=== PATIENT | female | born 1935 | race Caucasian/White ===

== ENCOUNTER → 2016-08-01 | Outpatient (CLI) | payer MEDICARE ==
[2016-08-01 09:50] LABS: ALT 31 U/L (9-52); AST 36 U/L (14-36); Alkaline Phosphatase 77 U/L (38-126); Anion Gap 10 mmol/L; Blood Urea Nitrogen 15 mg/dL (7-17); Calcium 9.5 mg/dL (8.4-10.2); Carbon Dioxide 30 mmol/L (22-30); Chloride 103 mmol/L (98-107); Cholesterol 237 mg/dL (<200); Glucose 90 mg/dL (74-99); HDL Cholesterol 109 mg/dL (40-60); Non-African American GFR(MDRD) >60 (>60 ml/min/1.73 sqM); Potassium 4.5 mmol/L (3.5-5.1); Sodium 143 mmol/L (137-145); Total Bilirubin 0.7 mg/dL (0.2-1.3); Total Protein 7.7 g/dL (6.3-8.2); Triglycerides 73 mg/dL (<150)
== END ==
LOC: LABWHC1 09:22
PROVIDERS: ATTEND Internal Medicine Endocrinology, Diabetes & Metabolism
DX: E11.65 Type 2 diabetes mellitus with hyperglycemia (principal)
CPT/HCPCS: 36415; 80053; 80061

== ENCOUNTER 2017-01-03 19:27 | Emergency (ER) | payer MEDICARE ==
[2017-01-03] MEDS ORDERED: SODIUM CHLORIDE 0.9% 500 ML IV STA (20:34)
[2017-01-03] MEDS ORDERED: RX INFO: IV CONTRAST WAS GIVEN 1 EACH MISC MISCELLANE PRN (20:34)
--- NOTE | 2017-01-03 20:36 | ED ---
Abdominal Pain HPI - General Chief Complaint: Abdominal Pain Stated Complaint: lower right abdominal pain Time Seen by Provider: 01/03/17 20:20 Source: patient, RN notes reviewed Mode of arrival: ambulatory Limitations: no limitations - History of Present Illness Initial Comments: This 81-year-old female presents emergency Department chief complaint of right lower quadrant abdominal pain. Patient states his pain started a few hours ago around dinnertime. Patient states she's felt nauseated no vomiting no diarrhea. States she's had some constipation. Patient denies any dysuria hematuria. She's had no prior abdominal surgeries and no history kidney stones. Patient denies chest pain, shortness breath, fever, chills. Patient states the pain has seemed to let up somewhat still right lower abdomen and painful with palpation. - Related Data Home Medications Medication Instructions Recorded Confirmed Donepezil [Aricept] 10 mg PO HS 12/05/14 01/03/17 Pravastatin Sodium [Pravachol] 20 mg PO DAILY 12/05/14 01/03/17 Insulin Lispro [humaLOG Kwikpen] 6 units SQ AC-TID 01/03/17 01/03/17 Synthroid (Unknown Dose) 1 tab PO DAILY 01/03/17 01/03/17 Previous Rx's Medication Instructions Recorded Insulin Glargine,Hum.rec.anlog 15 unit SQ DAILY #2 pen 12/07/14 [Lantus Solostar] Allergies Allergy/AdvReac Type Severity Reaction Status Date / Time No Known Allergies Allergy Verified 01/03/17 20:40 Review of Systems ROS Statement: Those systems with pertinent positive or pertinent negative responses have been documented in the HPI. ROS Other: All systems not noted in ROS Statement are negative. Past Medical History Past Medical History: Diabetes Mellitus, Hyperlipidemia, Memory Impairment, Osteoarthritis (OA), Syncope, Thyroid Disorder Additional Past Medical History / Comment(s): DIVERTICULOSIS, INSULIN PUMP,HAS DIFFIUCLTY STAYING ASLEEP. HAS HEARING AIDES BUT WON'T WEAR THEM, HAS UPPER PARTIAL PLATE. History of Any Multi-Drug Resistant Organisms: None Reported Past Surgical History: Adenoidectomy, Tonsillectomy Additional Past Surgical History / Comment(s): COLONOSCOPY, CATARACTS [place] Past Anesthesia/Blood Transfusion Reactions: No Reported Reaction Past Psychological History: No Psychological Hx Reported Smoking Status: Former smoker Past Alcohol Use History: Rare Past Drug Use History: None Reported - Past Family History Father History Unknown: Yes Additional Family Medical History / Comment(s): WAS ALCOHILIC IN AND OUT OF PTS LIFE NOT MUCH KNOWN ABOUT HIM Mother Family Medical History: Diabetes Mellitus General Exam Limitations: no limitations General appearance: alert, in no apparent distress Head exam: Present: atraumatic, normocephalic, normal inspection Eye exam: Present: normal appearance, PERRL, EOMI. Absent: scleral icterus, conjunctival injection, periorbital swelling Respiratory exam: Present: normal lung sounds bilaterally. Absent: respiratory distress, wheezes, rales, rhonchi, stridor Cardiovascular Exam: Present: regular rate, normal rhythm, normal heart sounds. Absent: systolic murmur, diastolic murmur, rubs, gallop, clicks GI/Abdominal exam: Present: soft, tenderness (Moderate right lower quadrant tenderness), normal bowel sounds. Absent: distended, guarding, rebound, rigid Back exam: Absent: CVA tenderness (R), CVA tenderness (L) Neurological exam: Present: alert, oriented X3, CN II-XII intact Skin exam: Present: warm, dry, intact, normal color. Absent: rash Course Vital Signs 01/03/17 01/03/17 01/03/17 19:58 20:07 21:47 Temperature 98.6 F 97.8 F Pulse Rate 60 60 56 L Respiratory 20 18 18 Rate Blood Pressure 158/71 169/76 166/78 O2 Sat by Pulse 99 96 98 Oximetry Medical Decision Making - Medical Decision Making 81-year-old female presented for abdominal pain. Patient's pain has resolved. Patient's CT does show some tortuous vessels most likely related to fibroids. Patient abdomen is reexamined and is nontender. There is no true evidence of appendicitis. Patient's case discussed with Dr. Orozco return parameters were discussed. - Lab Data Result diagrams: 01/03/17 20:40 01/03/17 20:40 Lab Results 01/03/17 01/03/17 01/03/17 Range/Units 20:40 20:40 22:36 WBC 4.5 (3.8-10.6) k/uL RBC 3.67 L (3.80-5.40) m/uL Hgb 13.5 (11.4-16.0) gm/dL Hct 39.1 (34.0-46.0) % MCV 106.5 H (80.0-100.0) fL MCH 36.8 H (25.0-35.0) pg MCHC 34.5 (31.0-37.0) g/dL RDW 11.7 (11.5-15.5) % Plt Count 246 (150-450) k/uL Neutrophils % 58 % Lymphocytes % 30 % Monocytes % 8 % Eosinophils % 2 % Basophils % 1 % Neutrophils # 2.6 (1.3-7.7) k/uL Lymphocytes # 1.3 (1.0-4.8) k/uL Monocytes # 0.3 (0-1.0) k/uL Eosinophils # 0.1 (0-0.7) k/uL Basophils # 0.0 (0-0.2) k/uL Macrocytosis Slight Sodium 140 (137-145) mmol/L Potassium 4.3 (3.5-5.1) mmol/L Chloride 107 (98-107) mmol/L Carbon Dioxide 25 (22-30) mmol/L Anion Gap 8 mmol/L BUN 14 (7-17) mg/dL Creatinine 0.60 (0.52-1.04) mg/dL Est GFR (MDRD) Af Amer >60 (>60 ml/min/1.73 sqM) Est GFR (MDRD) Non-Af >60 (>60 ml/min/1.73 sqM) Glucose 184 H (74-99) mg/dL Calcium 9.3 (8.4-10.2) mg/dL Total Bilirubin 0.6 (0.2-1.3) mg/dL AST 28 (14-36) U/L ALT 31 (9-52) U/L Alkaline Phosphatase 67 (38-126) U/L Total Protein 6.8 (6.3-8.2) g/dL Albumin 4.1 (3.5-5.0) g/dL Amylase <30 L (30-110) U/L Lipase 73 (23-300) U/L Urine Color Yellow Urine Appearance Clear (Clear) Urine pH 6.0 (5.0-8.0) Ur Specific Hawkins 1.047 H (1.001-1.035) Urine Protein Negative (Negative) Urine Glucose (UA) 4+ H (Negative) Urine Ketones Trace H (Negative) Urine Blood Negative (Negative) Urine Nitrite Negative (Negative) Urine Bilirubin Negative (Negative) Urine Urobilinogen <2.0 (<2.0) mg/dL Ur Leukocyte Esterase Negative (Negative) Disposition Clinical Impression: Abdominal pain Disposition: HOME SELF-CARE Condition: Stable Instructions: Abdominal Pain (ED) Additional Instructions: Please return to the Emergency Department if symptoms worsen or any other concerns. Referrals: Mat Duque MD [Primary Care Provider] - 1-2 days Time of Disposition: 23:04
[2017-01-03 20:59] LABS: Basophils % (A) 1 %; CH 35.6; CHCM 33.5; Eosinophils # (A) 0.1 k/uL (0-0.7); Eosinophils % (A) 2 %; HCT 39.1 % (34.0-46.0); HDW 2.16; HGB 13.5 gm/dL (11.4-16.0); Luc # (Auto) 0.11; Luc % (Auto) 3; Lymphocytes # (A) 1.3 k/uL (1.0-4.8); Lymphocytes % (A) 30 %; MCH 36.8 pg (25.0-35.0); MCHC 34.5 g/dL (31.0-37.0); MCV 106.5 fL (80.0-100.0); Macrocytosis Slight; Monocytes # (A) 0.3 k/uL (0-1.0); Monocytes % (A) 8 %; Neutrophils # (A) 2.6 k/uL (1.3-7.7); Neutrophils % (A) 58 %; RBC 3.67 m/uL (3.80-5.40); RDW 11.7 % (11.5-15.5); WBC 4.5 k/uL (3.8-10.6); WBC (Perox) 4.51
[2017-01-03 21:10] LABS: ALT 31 U/L (9-52); AST 28 U/L (14-36); Alkaline Phosphatase 67 U/L (38-126); Amylase <30 U/L (30-110); Anion Gap 8 mmol/L; Blood Urea Nitrogen 14 mg/dL (7-17); Calcium 9.3 mg/dL (8.4-10.2); Carbon Dioxide 25 mmol/L (22-30); Chloride 107 mmol/L (98-107); Glucose 184 mg/dL (74-99); Non-African American GFR(MDRD) >60 (>60 ml/min/1.73 sqM); Potassium 4.3 mmol/L (3.5-5.1); Sodium 140 mmol/L (137-145); Total Bilirubin 0.6 mg/dL (0.2-1.3); Total Protein 6.8 g/dL (6.3-8.2)
--- NOTE | 2017-01-03 21:48 | CT ---
EXAMINATION TYPE: CT abdomen pelvis w con DATE OF EXAM: 01/03/2017 COMPARISON: NONE HISTORY: Right lower quadrant pain. CT DLP: 362.3 mGycm Automated exposure control for dose reduction was used. TECHNIQUE: Helical acquisition of images was performed from the lung bases through the pelvis. CONTRAST: Performed without Oral Contrast and with IV Contrast, patient injected with 100 mL of Omnipaque 300. FINDINGS: LUNG BASES: Mild dependent changes are noted at both lung bases. 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 LIVER/GB: No significant abnormality is appreciated. PANCREAS: No significant abnormality is seen. SPLEEN: No significant abnormality is seen. ADRENALS: No significant abnormality is seen. KIDNEYS: No significant abnormality is seen. FREE AIR: No free air is visualized. RETROPERITONEAL ADENOPATHY: None visualized REPRODUCTIVE ORGANS: The uterus is present. URINARY BLADDER: No significant abnormality is seen. PELVIC ADENOPATHY: None visualized. OSSEOUS STRUCTURES: No significant abnormality is seen. BOWEL: No significant abnormality is seen. A normal or abnormal appendix is not identified. OTHER: There is a diffuse amount of enhancing vessels within the pelvis which could be related to the uterine artery. There is also enlarged inguinal lymph node noted on the right measuring 1.6 x 1.5 cm . IMPRESSION: MULTIPLE SERPIGINOUS VESSELS ARE IDENTIFIED SURROUNDING THE PATIENT'S UTERUS FELT TO BE TORTUOUS UTER INE ARTERIES. THERE IS A PROMINENT INGUINAL LYMPH NODE OF UNKNOWN SIGNIFICANCE. NO ACUTE ABNORMALITY IS IDENTIFIED.
[2017-01-03 22:47] LABS: Appearance,Urine Clear (Clear); Bilirubin,Urine Negative (Negative); Glucose,Urine (UA) 4+ (Negative); Ketones,Urine Trace (Negative); Leukocyte Esterase,Urine Negative (Negative); Nitrite,Urine Negative (Negative); Protein,Urine Negative (Negative); UA Billing (MACRO vs. MICRO) CHEM; Urobilinogen,Urine <2.0 mg/dL (<2.0)
[2017-01-03 22:52] LABS: Specific Gravity,Urine 1.047 (1.001-1.035)
[2017-01-03 23:12] VITALS: BP 142/58; PULSE 68; RESP 16; TEMP 97.6
== END 2017-01-03 23:11 | disposition home or self-care (01) ==
LOC: EC 19:27
DX: R10.31 Right lower quadrant pain (principal); R11.0 Nausea; E11.9 Type 2 diabetes mellitus without complications; E78.5 Hyperlipidemia, unspecified; E07.9 Disorder of thyroid, unspecified; Z87.891 Personal history of nicotine dependence; Z79.4 Long term (current) use of insulin; Z79.899 Other long term (current) drug therapy
CPT/HCPCS: 99284; 96360; 96361; 36415; 80053; 82150; 83690; 85025; 81003; 74177; Q9967

== ENCOUNTER 2017-01-11 13:02 | Inpatient (IN) | payer MEDICARE ==
[2017-01-11] MEDS ORDERED: SODIUM CHLORIDE 0.9% 1,000 ML IV STA (13:05)
--- NOTE | 2017-01-11 13:12 | ED ---
General Adult HPI - General Stated complaint: UNRESPONSIVE Time Seen by Provider: 01/11/17 13:03 Source: RN notes reviewed, old records reviewed - History of Present Illness Initial comments: This is an 81-year-old female ER for evaluation regarding altered mental status. Patient's not clinically at home. Patient has a caregiver caregiver called EMS secondary to unresponsiveness. Patient has history of exact same symptoms before these are usually related to low blood sugar episodes. Per EMS patient's blood sugar was 26 and has improved with IV dextrose - Related Data Home Medications Medication Instructions Recorded Confirmed Donepezil [Aricept] 10 mg PO HS 12/05/14 01/11/17 Pravastatin Sodium [Pravachol] 20 mg PO DAILY 12/05/14 01/11/17 Insulin Lispro [humaLOG Kwikpen] 6 units SQ ACHS 01/03/17 01/11/17 Chlorothiazide [Diuril] 250 mg PO DAILY 01/11/17 01/11/17 Glucagon Emergency Kit 1 mg IM ONCE PRN 01/11/17 01/11/17 Insulin Glargine,Hum.rec.anlog 16 unit SQ HS 01/11/17 01/11/17 [Lantus Solostar] Levothyroxine Sodium [Synthroid] 112 mcg PO DAILY 01/11/17 01/11/17 Memantine HCl [Namenda Xr] 14 mg PO DAILY 01/11/17 01/11/17 Oxybutynin Chloride [Ditropan] 5 mg PO DAILY 01/11/17 01/11/17 Triamterene-Hctz 37.5-25Mg 1 cap PO DAILY 01/11/17 01/11/17 [Dyazide 37.5-25 Capsule] Allergies Allergy/AdvReac Type Severity Reaction Status Date / Time No Known Allergies Allergy Verified 01/11/17 13:32 Review of Systems ROS Statement: Those systems with pertinent positive or pertinent negative responses have been documented in the HPI. ROS Other: All systems not noted in ROS Statement are negative. Past Medical History Past Medical History: Diabetes Mellitus, Hyperlipidemia, Memory Impairment, Osteoarthritis (OA), Syncope, Thyroid Disorder Additional Past Medical History / Comment(s): DIVERTICULOSIS, INSULIN PUMP,HAS DIFFIUCLTY STAYING ASLEEP. HAS HEARING AIDES BUT WON'T WEAR THEM, HAS UPPER PARTIAL PLATE. History of Any Multi-Drug Resistant Organisms: None Reported Past Surgical History: Adenoidectomy, Tonsillectomy Additional Past Surgical History / Comment(s): COLONOSCOPY, CATARACTS [place] Past Anesthesia/Blood Transfusion Reactions: No Reported Reaction Past Psychological History: No Psychological Hx Reported Smoking Status: Former smoker Past Alcohol Use History: Rare Past Drug Use History: None Reported - Past Family History Father History Unknown: Yes Additional Family Medical History / Comment(s): WAS ALCOHILIC IN AND OUT OF PTS LIFE NOT MUCH KNOWN ABOUT HIM Mother Family Medical History: Diabetes Mellitus General Exam Limitations: altered mental status General appearance: alert, in no apparent distress Head exam: Present: atraumatic, normocephalic, normal inspection Eye exam: Present: normal appearance, PERRL, EOMI. Absent: scleral icterus, conjunctival injection, periorbital swelling ENT exam: Present: normal exam, mucous membranes moist Neck exam: Present: normal inspection. Absent: tenderness, meningismus, lymphadenopathy Respiratory exam: Present: normal lung sounds bilaterally. Absent: respiratory distress, wheezes, rales, rhonchi, stridor Cardiovascular Exam: Present: regular rate, normal rhythm, normal heart sounds. Absent: systolic murmur, diastolic murmur, rubs, gallop, clicks GI/Abdominal exam: Present: soft, normal bowel sounds. Absent: distended, tenderness, guarding, rebound, rigid Extremities exam: Present: normal inspection, full ROM, normal capillary refill. Absent: tenderness, pedal edema, joint swelling, calf tenderness Back exam: Present: normal inspection Neurological exam: Present: alert, oriented X3, CN II-XII intact Psychiatric exam: Present: normal affect, normal mood Skin exam: Present: warm, dry, intact, normal color. Absent: rash Course Vital Signs 01/11/17 01/11/17 01/11/17 13:08 13:34 14:20 Temperature 95.5 F L 95.8 F L Pulse Rate 79 67 Respiratory 17 17 Rate Blood Pressure 192/89 165/67 O2 Sat by Pulse 93 L 98 Oximetry - Reevaluation(s) Reevaluation #1: 01/11/17 15:40 Patient does have recheck insulin as she has been diminished and her mental state again with recurrent low blood sugar EKG Findings - EKG Comments: EKG Findings:: EKG shows sinus rhythm rate of 66, [place] 136, QRS 70, QTc 461 Medical Decision Making - Medical Decision Making 81 female the ER for evaluation of altered mental status low blood sugar. Patient is recurrent admitted for IV insulin to increase diet. - Lab Data Result diagrams: 01/11/17 13:20 01/11/17 13:20 Lab Results 01/11/17 01/11/17 01/11/17 Range/Units 13:19 13:20 13:20 WBC 6.4 (3.8-10.6) k/uL RBC 3.96 (3.80-5.40) m/uL Hgb 14.5 (11.4-16.0) gm/dL Hct 44.3 (34.0-46.0) % MCV 111.7 H D (80.0-100.0) fL MCH 36.6 H (25.0-35.0) pg MCHC 32.8 (31.0-37.0) g/dL RDW 12.5 (11.5-15.5) % Plt Count 211 (150-450) k/uL Neutrophils % 78 % Lymphocytes % 16 % Monocytes % 5 % Eosinophils % 1 % Basophils % 0 % Neutrophils # 5.0 (1.3-7.7) k/uL Lymphocytes # 1.0 (1.0-4.8) k/uL Monocytes # 0.3 (0-1.0) k/uL Eosinophils # 0.1 (0-0.7) k/uL Basophils # 0.0 (0-0.2) k/uL Manual Slide Review Performed Macrocytosis Marked PT (9.0-12.0) sec INR (<1.2) APTT (22.0-30.0) sec Sodium (137-145) mmol/L Potassium (3.5-5.1) mmol/L Chloride (98-107) mmol/L Carbon Dioxide (22-30) mmol/L Anion Gap mmol/L BUN (7-17) mg/dL Creatinine (0.52-1.04) mg/dL Est GFR (MDRD) Af Amer (>60 ml/min/1.73 sqM) Est GFR (MDRD) Non-Af (>60 ml/min/1.73 sqM) Glucose (74-99) mg/dL POC Glucose (mg/dL) 93 (75-99) mg/dL POC Glu Ui Developer With [employer] ID Susanne Dorsey Plasma Lactic Acid Hank (0.7-2.0) mmol/L Calcium (8.4-10.2) mg/dL Phosphorus (2.5-4.5) mg/dL Magnesium (1.6-2.3) mg/dL Total Bilirubin (0.2-1.3) mg/dL AST (14-36) U/L ALT (9-52) U/L Alkaline Phosphatase (38-126) U/L Total Creatine Kinase 302 H (30-135) U/L CK-MB (CK-2) 4.3 H* (0.0-2.4) ng/mL CK-MB (CK-2) Rel Index 1.4 Troponin I <0.012 (0.000-0.034) ng/mL Total Protein (6.3-8.2) g/dL Albumin (3.5-5.0) g/dL TSH (0.465-4.680) mIU/L 01/11/17 01/11/17 01/11/17 Range/Units 13:20 13:20 13:20 WBC (3.8-10.6) k/uL RBC (3.80-5.40) m/uL Hgb (11.4-16.0) gm/dL Hct (34.0-46.0) % MCV (80.0-100.0) fL MCH (25.0-35.0) pg MCHC (31.0-37.0) g/dL RDW (11.5-15.5) % Plt Count (150-450) k/uL Neutrophils % % Lymphocytes % % Monocytes % % Eosinophils % % Basophils % % Neutrophils # (1.3-7.7) k/uL Lymphocytes # (1.0-4.8) k/uL Monocytes # (0-1.0) k/uL Eosinophils # (0-0.7) k/uL Basophils # (0-0.2) k/uL Manual Slide Review Macrocytosis PT 10.8 (9.0-12.0) sec INR 1.1 (<1.2) APTT 22.2 (22.0-30.0) sec Sodium 141 (137-145) mmol/L Potassium 4.1 (3.5-5.1) mmol/L Chloride 107 (98-107) mmol/L Carbon Dioxide 25 (22-30) mmol/L Anion Gap 9 mmol/L BUN 15 (7-17) mg/dL Creatinine 0.56 (0.52-1.04) mg/dL Est GFR (MDRD) Af Amer >60 (>60 ml/min/1.73 sqM) Est GFR (MDRD) Non-Af >60 (>60 ml/min/1.73 sqM) Glucose 90 (74-99) mg/dL POC Glucose (mg/dL) (75-99) mg/dL POC Glu Ui Developer With [employer] ID Plasma Lactic Acid Hank 2.1 H* (0.7-2.0) mmol/L Calcium 8.9 (8.4-10.2) mg/dL Phosphorus 3.3 (2.5-4.5) mg/dL Magnesium 1.8 (1.6-2.3) mg/dL Total Bilirubin 0.7 (0.2-1.3) mg/dL AST 46 H (14-36) U/L ALT 33 (9-52) U/L Alkaline Phosphatase 54 (38-126) U/L Total Creatine Kinase (30-135) U/L CK-MB (CK-2) (0.0-2.4) ng/mL CK-MB (CK-2) Rel Index Troponin I (0.000-0.034) ng/mL Total Protein 7.0 (6.3-8.2) g/dL Albumin 4.1 (3.5-5.0) g/dL TSH 19.900 H (0.465-4.680) mIU/L 01/11/17 01/11/17 Range/Units 14:42 15:28 WBC (3.8-10.6) k/uL RBC (3.80-5.40) m/uL Hgb (11.4-16.0) gm/dL Hct (34.0-46.0) % MCV (80.0-100.0) fL MCH (25.0-35.0) pg MCHC (31.0-37.0) g/dL RDW (11.5-15.5) % Plt Count (150-450) k/uL Neutrophils % % Lymphocytes % % Monocytes % % Eosinophils % % Basophils % % Neutrophils # (1.3-7.7) k/uL Lymphocytes # (1.0-4.8) k/uL Monocytes # (0-1.0) k/uL Eosinophils # (0-0.7) k/uL Basophils # (0-0.2) k/uL Manual Slide Review Macrocytosis PT (9.0-12.0) sec INR (<1.2) APTT (22.0-30.0) sec Sodium (137-145) mmol/L Potassium (3.5-5.1) mmol/L Chloride (98-107) mmol/L Carbon Dioxide (22-30) mmol/L Anion Gap mmol/L BUN (7-17) mg/dL Creatinine (0.52-1.04) mg/dL Est GFR (MDRD) Af Amer (>60 ml/min/1.73 sqM) Est GFR (MDRD) Non-Af (>60 ml/min/1.73 sqM) Glucose (74-99) mg/dL POC Glucose (mg/dL) 65 L 45 L (75-99) mg/dL POC Glu Ui Developer With [employer] Susanne Quinn Ellie Plasma Lactic Acid Hank (0.7-2.0) mmol/L Calcium (8.4-10.2) mg/dL Phosphorus (2.5-4.5) mg/dL Magnesium (1.6-2.3) mg/dL Total Bilirubin (0.2-1.3) mg/dL AST (14-36) U/L ALT (9-52) U/L Alkaline Phosphatase (38-126) U/L Total Creatine Kinase (30-135) U/L CK-MB (CK-2) (0.0-2.4) ng/mL CK-MB (CK-2) Rel Index Troponin I (0.000-0.034) ng/mL Total Protein (6.3-8.2) g/dL Albumin (3.5-5.0) g/dL TSH (0.465-4.680) mIU/L Disposition Clinical Impression: Altered mental status, Hypoglycemia Disposition: HOME SELF-CARE Condition: Good Instructions: Altered Mental Status (ED) Referrals: Mat Duque MD [Primary Care Provider] - 1-2 days
[2017-01-11 13:21] LABS: Glucose,Whole Blood 93 mg/dL (75-99)
[2017-01-11 13:42] LABS: Basophils % (A) 0 %; CHCM 32.4; Eosinophils # (A) 0.1 k/uL (0-0.7); Eosinophils % (A) 1 %; HCT 44.3 % (34.0-46.0); HGB 14.5 gm/dL (11.4-16.0); Luc # (Auto) 0.04; Luc % (Auto) 1; Lymphocytes % (A) 16 %; MCH 36.6 pg (25.0-35.0); MCHC 32.8 g/dL (31.0-37.0); Macrocytosis Marked; Monocytes # (A) 0.3 k/uL (0-1.0); Monocytes % (A) 5 %; Neutrophils % (A) 78 %; RBC 3.96 m/uL (3.80-5.40); RDW 12.5 % (11.5-15.5); WBC 6.4 k/uL (3.8-10.6); WBC (Perox) 7.09
[2017-01-11 13:45] LABS: INR 1.1 (<1.2); Prothrombin Time 10.8 sec (9.0-12.0)
[2017-01-11 13:50] LABS: MCV 111.7 fL (80.0-100.0)
[2017-01-11 13:54] LABS: Partial Thromboplastin Time 22.2 sec (22.0-30.0)
[2017-01-11 13:56] LABS: ALT 33 U/L (9-52); AST 46 U/L (14-36); Alkaline Phosphatase 54 U/L (38-126); Anion Gap 9 mmol/L; Blood Urea Nitrogen 15 mg/dL (7-17); Calcium 8.9 mg/dL (8.4-10.2); Carbon Dioxide 25 mmol/L (22-30); Chloride 107 mmol/L (98-107); Glucose 90 mg/dL (74-99); Magnesium 1.8 mg/dL (1.6-2.3); Non-African American GFR(MDRD) >60 (>60 ml/min/1.73 sqM); Phosphorus 3.3 mg/dL (2.5-4.5); Sodium 141 mmol/L (137-145); Total Bilirubin 0.7 mg/dL (0.2-1.3)
[2017-01-11 14:10] LABS: Creatine Kinase 302 U/L (30-135)
[2017-01-11 14:18] LABS: Manual Review Performed
[2017-01-11 14:23] LABS: Troponin I <0.012 ng/mL (0.000-0.034)
[2017-01-11 14:36] LABS: Creatine Kinase MB 4.3 ng/mL (0.0-2.4); Potassium 4.1 mmol/L (3.5-5.1)
[2017-01-11 14:44] LABS: Glucose,Whole Blood 65 mg/dL (75-99)
[2017-01-11] MEDS ORDERED: DEXTROSE 50%-WATER 50 ML SYRINGE IVP STA (14:52)
[2017-01-11] MEDS ORDERED: DEXTROSE 5%-0.45% NACL 1,000 ML IV ONE ×2 (14:52→14:57)
[2017-01-11 15:30] LABS: Glucose,Whole Blood 45 mg/dL (75-99)
--- NOTE | 2017-01-11 15:52 | ED ---
Medical Decision Making - Lab Data Result diagrams: 01/11/17 13:20 01/11/17 13:20 Lab Results 01/11/17 01/11/17 01/11/17 Range/Units 13:19 13:20 13:20 WBC 6.4 (3.8-10.6) k/uL RBC 3.96 (3.80-5.40) m/uL Hgb 14.5 (11.4-16.0) gm/dL Hct 44.3 (34.0-46.0) % MCV 111.7 H D (80.0-100.0) fL MCH 36.6 H (25.0-35.0) pg MCHC 32.8 (31.0-37.0) g/dL RDW 12.5 (11.5-15.5) % Plt Count 211 (150-450) k/uL Neutrophils % 78 % Lymphocytes % 16 % Monocytes % 5 % Eosinophils % 1 % Basophils % 0 % Neutrophils # 5.0 (1.3-7.7) k/uL Lymphocytes # 1.0 (1.0-4.8) k/uL Monocytes # 0.3 (0-1.0) k/uL Eosinophils # 0.1 (0-0.7) k/uL Basophils # 0.0 (0-0.2) k/uL Manual Slide Review Performed Macrocytosis Marked PT (9.0-12.0) sec INR (<1.2) APTT (22.0-30.0) sec Sodium (137-145) mmol/L Potassium (3.5-5.1) mmol/L Chloride (98-107) mmol/L Carbon Dioxide (22-30) mmol/L Anion Gap mmol/L BUN (7-17) mg/dL Creatinine (0.52-1.04) mg/dL Est GFR (MDRD) Af Amer (>60 ml/min/1.73 sqM) Est GFR (MDRD) Non-Af (>60 ml/min/1.73 sqM) Glucose (74-99) mg/dL POC Glucose (mg/dL) 93 (75-99) mg/dL POC Glu [employer] Manager ID Dorsey, Susanne Plasma Lactic Acid Hank (0.7-2.0) mmol/L Calcium (8.4-10.2) mg/dL Phosphorus (2.5-4.5) mg/dL Magnesium (1.6-2.3) mg/dL Total Bilirubin (0.2-1.3) mg/dL AST (14-36) U/L ALT (9-52) U/L Alkaline Phosphatase (38-126) U/L Total Creatine Kinase 302 H (30-135) U/L CK-MB (CK-2) 4.3 H* (0.0-2.4) ng/mL CK-MB (CK-2) Rel Index 1.4 Troponin I <0.012 (0.000-0.034) ng/mL Total Protein (6.3-8.2) g/dL Albumin (3.5-5.0) g/dL TSH (0.465-4.680) mIU/L 01/11/17 01/11/17 01/11/17 Range/Units 13:20 13:20 13:20 WBC (3.8-10.6) k/uL RBC (3.80-5.40) m/uL Hgb (11.4-16.0) gm/dL Hct (34.0-46.0) % MCV (80.0-100.0) fL MCH (25.0-35.0) pg MCHC (31.0-37.0) g/dL RDW (11.5-15.5) % Plt Count (150-450) k/uL Neutrophils % % Lymphocytes % % Monocytes % % Eosinophils % % Basophils % % Neutrophils # (1.3-7.7) k/uL Lymphocytes # (1.0-4.8) k/uL Monocytes # (0-1.0) k/uL Eosinophils # (0-0.7) k/uL Basophils # (0-0.2) k/uL Manual Slide Review Macrocytosis PT 10.8 (9.0-12.0) sec INR 1.1 (<1.2) APTT 22.2 (22.0-30.0) sec Sodium 141 (137-145) mmol/L Potassium 4.1 (3.5-5.1) mmol/L Chloride 107 (98-107) mmol/L Carbon Dioxide 25 (22-30) mmol/L Anion Gap 9 mmol/L BUN 15 (7-17) mg/dL Creatinine 0.56 (0.52-1.04) mg/dL Est GFR (MDRD) Af Amer >60 (>60 ml/min/1.73 sqM) Est GFR (MDRD) Non-Af >60 (>60 ml/min/1.73 sqM) Glucose 90 (74-99) mg/dL POC Glucose (mg/dL) (75-99) mg/dL POC Glu [employer] Manager ID Plasma Lactic Acid Hank 2.1 H* (0.7-2.0) mmol/L Calcium 8.9 (8.4-10.2) mg/dL Phosphorus 3.3 (2.5-4.5) mg/dL Magnesium 1.8 (1.6-2.3) mg/dL Total Bilirubin 0.7 (0.2-1.3) mg/dL AST 46 H (14-36) U/L ALT 33 (9-52) U/L Alkaline Phosphatase 54 (38-126) U/L Total Creatine Kinase (30-135) U/L CK-MB (CK-2) (0.0-2.4) ng/mL CK-MB (CK-2) Rel Index Troponin I (0.000-0.034) ng/mL Total Protein 7.0 (6.3-8.2) g/dL Albumin 4.1 (3.5-5.0) g/dL TSH 19.900 H (0.465-4.680) mIU/L 01/11/17 01/11/17 Range/Units 14:42 15:28 WBC (3.8-10.6) k/uL RBC (3.80-5.40) m/uL Hgb (11.4-16.0) gm/dL Hct (34.0-46.0) % MCV (80.0-100.0) fL MCH (25.0-35.0) pg MCHC (31.0-37.0) g/dL RDW (11.5-15.5) % Plt Count (150-450) k/uL Neutrophils % % Lymphocytes % % Monocytes % % Eosinophils % % Basophils % % Neutrophils # (1.3-7.7) k/uL Lymphocytes # (1.0-4.8) k/uL Monocytes # (0-1.0) k/uL Eosinophils # (0-0.7) k/uL Basophils # (0-0.2) k/uL Manual Slide Review Macrocytosis PT (9.0-12.0) sec INR (<1.2) APTT (22.0-30.0) sec Sodium (137-145) mmol/L Potassium (3.5-5.1) mmol/L Chloride (98-107) mmol/L Carbon Dioxide (22-30) mmol/L Anion Gap mmol/L BUN (7-17) mg/dL Creatinine (0.52-1.04) mg/dL Est GFR (MDRD) Af Amer (>60 ml/min/1.73 sqM) Est GFR (MDRD) Non-Af (>60 ml/min/1.73 sqM) Glucose (74-99) mg/dL POC Glucose (mg/dL) 65 L 45 L (75-99) mg/dL POC Glu [employer] Manager Susanne Quinn Ellie Plasma Lactic Acid Hank (0.7-2.0) mmol/L Calcium (8.4-10.2) mg/dL Phosphorus (2.5-4.5) mg/dL Magnesium (1.6-2.3) mg/dL Total Bilirubin (0.2-1.3) mg/dL AST (14-36) U/L ALT (9-52) U/L Alkaline Phosphatase (38-126) U/L Total Creatine Kinase (30-135) U/L CK-MB (CK-2) (0.0-2.4) ng/mL CK-MB (CK-2) Rel Index Troponin I (0.000-0.034) ng/mL Total Protein (6.3-8.2) g/dL Albumin (3.5-5.0) g/dL TSH (0.465-4.680) mIU/L Disposition Clinical Impression: Altered mental status, Hypoglycemia Disposition: ADMITTED IP TO THIS [facility] Condition: Good Instructions: Altered Mental Status (ED) Referrals: Mat Duque MD [Primary Care Provider] - 1-2 days
[2017-01-11 15:57] LABS: Glucose,Whole Blood 165 mg/dL (75-99)
[2017-01-11 16:19] LABS: Appearance,Urine Clear (Clear); Bilirubin,Urine Negative (Negative); Glucose,Urine (UA) 3+ (Negative); Ketones,Urine Negative (Negative); Leukocyte Esterase,Urine Negative (Negative); Nitrite,Urine Negative (Negative); Protein,Urine Negative (Negative); UA Billing (MACRO vs. MICRO) CHEM; Urobilinogen,Urine <2.0 mg/dL (<2.0)
[2017-01-11 16:36] LABS: Glucose,Whole Blood 133 mg/dL (75-99)
[2017-01-11 17:01] LABS: Glucose,Whole Blood 141 mg/dL (75-99)
[2017-01-11] MEDS ORDERED: GLUCAGON EMERGENCY 1 MG KIT IM PRN (18:19)
[2017-01-11] MEDS ORDERED: INSULIN LISPRO (humaLOG) 300 UNIT/3 ML VIAL SQ SCH (18:30)
[2017-01-11 20:23] LABS: Hemoglobin A1C 8.9 % (4.2-6.1)
--- NOTE | 2017-01-11 20:53 | P.HPIM ---
History of Present Illness H&P Date: 01/11/17 Chief Complaint: Altered mentation with severe hypoglycemia 81-year-old female pleasant patient of Dr. Duque with history of diabetes type 2 labile type of insulin-dependent could not remain on oral agent followed by Dr. Rojas endocrinology outpatient also has memory impairment, hyperlipidemia, osteomyelitis, hypothyroidism admitted to the emergency room secondary to unresponsiveness, EMS has evaluated the patient, this happened between breakfast and lunch, blood sugar was 26 at the time. Patient was supposed to take 6 units of insulin rapid acting breakfast lunch and dinner including a sliding scale at bedtime, patient complies with blood sugar testing, and cannot remember what her sugar numbers are and no sugar logs are brought in for further review. Patient apparently has been having decreased appetite, and only had toast and coffee for breakfast when the sugar decline occurred. Patient was given IV glucagon via EMS, and patient woke up in the ambulance. She denies any focal neurologic deficits including musculoskeletal trauma after the event. Patient denies any abdominal pain nausea vomiting diarrhea, no dysuria hematuria Review of Systems Constitutional: Reports as per HPI, Reports anorexia, Reports weight loss, Denies chills, Denies chronic headaches, Denies chronic pain, Denies daytime sleepiness, Denies fatigue, Denies fever, Denies lethargy, Denies malaise, Denies night sweats, Denies poor appetite, Denies sweats, Denies weakness, Denies weight gain Ears, nose, mouth and throat: Reports as per HPI, Denies ant. neck pain, Denies bleeding gums, Denies dental pain, Denies dysphagia, Denies epistaxis, Denies headache, Denies hoarseness, Denies mouth pain, Denies nasal congestion, Denies nasal discharge, Denies neck fullness/pressure, Denies neck lump, Denies nose pain, Denies odynophagia, Denies post-nasal drip, Denies sinus pain, Denies sinus pressure, Denies swelling in mouth, Denies swelling in throat, Denies sore throat, Denies vertigo, Denies voice changes Cardiovascular: Reports as per HPI, Denies chest pain, Denies claudication, Denies decreased exercise tolerance, Denies dyspnea on exertion, Denies edema, Denies high blood pressure, Denies irregular heart beat, Denies leg edema, Denies lightheadedness, Denies orthopnea, Denies palpitations, Denies paroxysmal nocturnal dyspnea, Denies phlebitis, Denies rapid heart beat, Denies shortness of breath, Denies syncope Respiratory: Reports as per HPI, Denies congestion, Denies cough, Denies cough with sputum, Denies dyspnea, Denies excessive sputum, Denies hemoptysis, Denies home oxygen, Denies pain, Denies pain on inspiration, Denies pleurisy, Denies respiratory infections, Denies sleep apnea, Denies snoring, Denies wheezing Gastrointestinal: Reports as per HPI Genitourinary: Reports as per HPI, Denies abnormal vaginal bleeding, Denies decreased libido, Denies difficulty conceiving, Denies difficulty voiding, Denies dysmenorrhea, Denies dyspareunia, Denies dysuria, Denies flank pain, Denies genital sores, Denies hematuria, Denies hot flashes, Denies incomplete emptying, Denies kidney stones, Denies menorrhagia, Denies mixed incontinence, Denies nocturia, Denies pelvic pain, Denies post void dribbling, Denies , Denies prolapse symptoms, Denies stress incontinence, Denies urge incontinence , Denies urgency, Denies urinary frequency, Denies vaginal discharge, Denies vaginal dryness, Denies vaginal itching, Denies vaginal odor Menstruation: Reports as per HPI, Reports postmenopausal Musculoskeletal: Reports as per HPI Integumentary: Reports as per HPI Neurological: Reports as per HPI, Reports weakness, Denies aphasia, Denies ataxia, Denies balance difficulties, Denies burning pain, Denies change in mentation, Denies change in smell/taste, Denies change in speech, Denies confusion, Denies convulsions, Denies double vision, Denies gait dysfunction, Denies head injury, Denies headaches, Denies hearing difficulties, Denies lack of coordination, Denies loss of vision, Denies memory loss, Denies migraines, Denies motor disturbance, Denies numbness, Denies paralysis, Denies paresthesias , Denies seizures, Denies sensory deficit, Denies spasticity, Denies syncope, Denies tic, Denies tingling, Denies transient paralysis, Denies tremors, Denies vertigo, Denies visual changes Psychiatric: Reports as per HPI, Denies anhedonia, Denies anxiety, Denies anxiety attacks, Denies change in appetite, Denies change in libido, Denies change in sleep habits, Denies confusion, Denies depression, Denies difficulty concentrating, Denies disorientation, Denies hallucinations, Denies hopelessness , Denies hypersomnia, Denies insomnia, Denies irritability, Denies memory loss, Denies mood swings, Denies paranoia, Denies sadness/tearfulness, Denies sleep disturbances, Denies suicidal ideation Endocrine: Reports as per HPI, Denies cold intolerance, Denies deepening of the voice, Denies excessive sweating, Denies excessive thirst, Denies fatigue, Denies flushing, Denies heat intolerance, Denies high blood sugars, Denies increase in ring/shoe/hat size, Denies low blood sugars, Denies nocturia, Denies palpitations, Denies polydipsia, Denies polyphagia, Denies polyuria, Denies proptosis, Denies recent glucocorticoid use, Denies thyroid mass, Denies weight change Hematologic/Lymphatic: Reports as per HPI, Denies easy bleeding, Denies easy bruising, Denies lymphadenopathy, Denies lymphedema, Denies thrombophilia Allergic/Immunologic: Reports as per HPI, Denies allergic rhinitis, Denies anaphylaxis, Denies angioedema, Denies gluten intolerance, Denies persistent infections, Denies seasonal allergies, Denies urticaria, Denies wheezing Past Medical History Past Medical History: Diabetes Mellitus, Hyperlipidemia, Memory Impairment, Osteoarthritis (OA), Syncope, Thyroid Disorder Additional Past Medical History / Comment(s): HAS HEARING AIDES BUT WON'T WEAR THEM, HAS UPPER PARTIAL PLATE. History of Any Multi-Drug Resistant Organisms: None Reported Past Surgical History: Adenoidectomy, Tonsillectomy, Tubal Ligation Additional Past Surgical History / Comment(s): COLONOSCOPY, BILATERAL CATARACTS REMOVED; LIVER BIOP Past Anesthesia/Blood Transfusion Reactions: No Reported Reaction Past Psychological History: No Psychological Hx Reported Smoking Status: Former smoker Past Alcohol Use History: Rare Past Drug Use History: None Reported - Past Family History Father History Unknown: Yes Additional Family Medical History / Comment(s): WAS ALCOHILIC IN AND OUT OF PTS LIFE NOT MUCH KNOWN ABOUT HIM Mother Family Medical History: Diabetes Mellitus Medications and Allergies Home Medications Medication Instructions Recorded Confirmed Type Donepezil [Aricept] 10 mg PO HS 12/05/14 01/11/17 History Pravastatin Sodium [Pravachol] 20 mg PO DAILY 12/05/14 01/11/17 History Insulin Lispro [humaLOG Kwikpen] 6 units SQ ACHS 01/03/17 01/11/17 History Chlorothiazide [Diuril] 250 mg PO DAILY 01/11/17 01/11/17 History Glucagon Emergency Kit 1 mg IM ONCE PRN 01/11/17 01/11/17 History Insulin Glargine,Hum.rec.anlog 16 unit SQ HS 01/11/17 01/11/17 History [Lantus Solostar] Levothyroxine Sodium [Synthroid] 112 mcg PO DAILY 01/11/17 01/11/17 History Memantine HCl [Namenda Xr] 14 mg PO DAILY 01/11/17 01/11/17 History Oxybutynin Chloride [Ditropan] 5 mg PO DAILY 01/11/17 01/11/17 History Triamterene-Hctz 37.5-25Mg 1 cap PO DAILY 01/11/17 01/11/17 History [Dyazide 37.5-25 Capsule] Allergies Allergy/AdvReac Type Severity Reaction Status Date / Time No Known Allergies Allergy Verified 01/11/17 13:32 Physical Exam Vitals: Vital Signs Temp Pulse Pulse Resp BP BP Pulse Ox 01/11/17 17:49 97.6 F 69 16 156/80 98 01/11/17 16:43 96.1 F L 54 L 17 173/87 98 01/11/17 15:51 77 17 178/86 98 01/11/17 14:20 95.8 F L 67 17 165/67 98 01/11/17 13:34 95.5 F L 01/11/17 13:08 79 17 192/89 93 L Intake and Output 01/11/17 01/11/17 01/11/17 06:59 14:59 22:59 Other: Weight 58.967 kg Patient Weight 01/12/17 06:59 Weight 58.967 kg - Constitutional General appearance: average body habitus, cooperative, no acute distress - EENT Eyes: anicteric sclerae, EOMI, PERRLA, dentition normal, normal appearance ENT: hearing grossly normal, NA/AT, normal oropharynx - Neck Neck: no lymphadenopathy, normal ROM, no other, no rigidity, no stridor, no thyromegaly - Respiratory Respiratory: bilateral: CTA, negative: diminished, dullness, rales, rhonchi - Cardiovascular Rhythm: regular Abnormal Heart Sounds: systolic murmur, no diastolic murmur, no rub, no S3 Gallop, no S4 Gallop, no click, no other - Gastrointestinal General gastrointestinal: normal bowel sounds, soft - Integumentary Integumentary: normal, normal turgor - Musculoskeletal Musculoskeletal: gait normal, no generalized weakness, strength equal bilaterally, no right sided weakness, no left sided weakness - Psychiatric Psychiatric: A&O x's 3, appropriate affect, intact judgment & insight Results CBC & Chem 7: 01/11/17 13:20 01/11/17 13:20 Labs: Abnormal Lab Results - Last 24 Hours (Table) 01/11/17 01/11/17 01/11/17 Range/Units 13:20 13:20 13:20 MCV 111.7 H D (80.0-100.0) fL MCH 36.6 H (25.0-35.0) pg POC Glucose (mg/dL) (75-99) mg/dL Plasma Lactic Acid Hank (0.7-2.0) mmol/L AST 46 H (14-36) U/L Total Creatine Kinase 302 H (30-135) U/L CK-MB (CK-2) 4.3 H* (0.0-2.4) ng/mL TSH 19.900 H (0.465-4.680) mIU/L Urine Glucose (UA) (Negative) 01/11/17 01/11/17 01/11/17 Range/Units 13:20 13:57 14:42 MCV (80.0-100.0) fL MCH (25.0-35.0) pg POC Glucose (mg/dL) 65 L (75-99) mg/dL Plasma Lactic Acid Hank 2.1 H* (0.7-2.0) mmol/L AST (14-36) U/L Total Creatine Kinase (30-135) U/L CK-MB (CK-2) (0.0-2.4) ng/mL TSH (0.465-4.680) mIU/L Urine Glucose (UA) 3+ H (Negative) 01/11/17 01/11/17 01/11/17 Range/Units 15:28 15:49 16:34 MCV (80.0-100.0) fL MCH (25.0-35.0) pg POC Glucose (mg/dL) 45 L 165 H 133 H (75-99) mg/dL Plasma Lactic Acid Hank (0.7-2.0) mmol/L AST (14-36) U/L Total Creatine Kinase (30-135) U/L CK-MB (CK-2) (0.0-2.4) ng/mL TSH (0.465-4.680) mIU/L Urine Glucose (UA) (Negative) 01/11/17 Range/Units 16:58 MCV (80.0-100.0) fL MCH (25.0-35.0) pg POC Glucose (mg/dL) 141 H (75-99) mg/dL Plasma Lactic Acid Hank (0.7-2.0) mmol/L AST (14-36) U/L Total Creatine Kinase (30-135) U/L CK-MB (CK-2) (0.0-2.4) ng/mL TSH (0.465-4.680) mIU/L Urine Glucose (UA) (Negative) Laboratory Results WBC 6.4 k/uL (3.8-10.6) 01/11/17 13:20 RBC 3.96 m/uL (3.80-5.40) 01/11/17 13:20 Hgb 14.5 gm/dL (11.4-16.0) 01/11/17 13:20 Hct 44.3 % (34.0-46.0) 01/11/17 13:20 MCV 111.7 fL (80.0-100.0) H D 01/11/17 13:20 MCH 36.6 pg (25.0-35.0) H 01/11/17 13:20 MCHC 32.8 g/dL (31.0-37.0) 01/11/17 13:20 RDW 12.5 % (11.5-15.5) 01/11/17 13:20 Plt Count 211 k/uL (150-450) 01/11/17 13:20 Neutrophils % 78 % 01/11/17 13:20 Lymphocytes % 16 % 01/11/17 13:20 Monocytes % 5 % 01/11/17 13:20 Eosinophils % 1 % 01/11/17 13:20 Basophils % 0 % 01/11/17 13:20 Neutrophils # 5.0 k/uL (1.3-7.7) 01/11/17 13:20 Lymphocytes # 1.0 k/uL (1.0-4.8) 01/11/17 13:20 Monocytes # 0.3 k/uL (0-1.0) 01/11/17 13:20 Eosinophils # 0.1 k/uL (0-0.7) 01/11/17 13:20 Basophils # 0.0 k/uL (0-0.2) 01/11/17 13:20 Manual Slide Review Performed 01/11/17 13:20 Macrocytosis Marked 01/11/17 13:20 PT 10.8 sec (9.0-12.0) 01/11/17 13:20 INR 1.1 (<1.2) 01/11/17 13:20 APTT 22.2 sec (22.0-30.0) 01/11/17 13:20 Sodium 141 mmol/L (137-145) 01/11/17 13:20 Potassium 4.1 mmol/L (3.5-5.1) 01/11/17 13:20 Chloride 107 mmol/L (98-107) 01/11/17 13:20 Carbon Dioxide 25 mmol/L (22-30) 01/11/17 13:20 Anion Gap 9 mmol/L 01/11/17 13:20 BUN 15 mg/dL (7-17) 01/11/17 13:20 Creatinine 0.56 mg/dL (0.52-1.04) 01/11/17 13:20 Est GFR (MDRD) Af Amer >60 (>60 ml/min/1.73 sqM) 01/11/17 13:20 Est GFR (MDRD) Non-Af >60 (>60 ml/min/1.73 sqM) 01/11/17 13:20 Glucose 90 mg/dL (74-99) 01/11/17 13:20 POC Glucose (mg/dL) 141 mg/dL (75-99) H 01/11/17 16:58 POC Glu [employer] Technician ID 01/11/17 16:58 Lactic Ac Sepsis Rflx Y 01/11/17 13:48 Plasma Lactic Acid Hank 1.4 mmol/L (0.7-2.0) 01/11/17 16:55 Calcium 8.9 mg/dL (8.4-10.2) 01/11/17 13:20 Phosphorus 3.3 mg/dL (2.5-4.5) 01/11/17 13:20 Magnesium 1.8 mg/dL (1.6-2.3) 01/11/17 13:20 Total Bilirubin 0.7 mg/dL (0.2-1.3) 01/11/17 13:20 AST 46 U/L (14-36) H 01/11/17 13:20 ALT 33 U/L (9-52) 01/11/17 13:20 Alkaline Phosphatase 54 U/L (38-126) 01/11/17 13:20 Total Creatine Kinase 302 U/L (30-135) H 01/11/17 13:20 CK-MB (CK-2) 4.3 ng/mL (0.0-2.4) H* 01/11/17 13:20 CK-MB (CK-2) Rel Index 1.4 01/11/17 13:20 Troponin I <0.012 ng/mL (0.000-0.034) 01/11/17 13:20 Total Protein 7.0 g/dL (6.3-8.2) 01/11/17 13:20 Albumin 4.1 g/dL (3.5-5.0) 01/11/17 13:20 TSH 19.900 mIU/L (0.465-4.680) H 01/11/17 13:20 Urine Color Yellow 01/11/17 13:57 Urine Appearance Clear (Clear) 01/11/17 13:57 Urine pH 7.0 (5.0-8.0) 01/11/17 13:57 Ur Specific Buras 1.010 (1.001-1.035) 01/11/17 13:57 Urine Protein Negative (Negative) 01/11/17 13:57 Urine Glucose (UA) 3+ (Negative) H 01/11/17 13:57 Urine Ketones Negative (Negative) 01/11/17 13:57 Urine Blood Negative (Negative) 01/11/17 13:57 Urine Nitrite Negative (Negative) 01/11/17 13:57 Urine Bilirubin Negative (Negative) 01/11/17 13:57 Urine Urobilinogen <2.0 mg/dL (<2.0) 01/11/17 13:57 Ur Leukocyte Esterase Negative (Negative) 01/11/17 13:57 Thrombosis Risk Factor Assmnt - Choose All That Apply Any of the Below Risk Factors Present?: No Each Risk Factor Represents 3 Points: Age 75 years or older Thrombosis Risk Factor Assessment Total Risk Factor Score: 3 Thrombosis Risk Factor Assessment Level: Moderate Risk Assessment and Plan Plan: 1. Hypoglycemia secondary to diminished carbohydrate intake while on routine pre-meal insulin bolus, patient's labile with regards her blood sugar, follows with Dr. Rojas emergency service worker. Patient was seen by her during this admission, a blood sugar log needs to be maintained , patient will be on sliding scale insulin during this time and.= adjust insulin requirements anew.. Hemoglobin A1c will be obtained, hold Lantus hold lispro, and most likely restart at 75 % of Lantus in the next 24 hours.. Monitor for cardio vascular complications and neurologic complications related to hypoglycemia, continue D5 W at 80 mL an hour secondary to persistent hypoglycemia 2. Diabetes mellitus type 1 with prior history off DKA insulin requiring 3 hyperlipidemia: On statin resume medication which is pravastatin. 4hypothyroidism: Patient is on levothyroxine continue medication. Adjusted to 125 g secondary to elevated TSH, previous 112 mcg 5 neurocognitive disease with memory loss, chronic patient has been on Aricept currently lives at home with the , functional ADLs are still acceptable, most likely would need supervision specially with meals of supervision and insulin adjustments 6 remote history GI bleed upper, no current activity 7. Hypertension on hydro-Diuril 25 mg daily and Dyazide daily. Patient is not on any eileen inhibitors prior to admission 7 GI prophylaxis: Patient will be on Protonix IV. 8 DVT prophylaxis: We'll continue patient on knee-high KHADIJAH hose along with Venodyne boots no anticoagulation to be use for now. CODE STATUS: Full code. Expectation from this admission: Patient be in the hospital for more than 2 nights.
[2017-01-11 20:58] LABS: Glucose,Whole Blood 350 mg/dL (75-99)
[2017-01-11] MEDS ORDERED: INSULIN GLARGINE 100 UNIT/ML 10 ML VIAL SQ SCH (21:45)
[2017-01-11] MEDS: DONEPEZIL 10 MG TAB PO SCH (22:16)
[2017-01-11] MEDS: SODIUM CHLORIDE 0.9% 1,000 ML IV SCH (22:20)
[2017-01-12 02:11] LABS: Glucose,Whole Blood 311 mg/dL (75-99)
[2017-01-12] MEDS ORDERED: LEVOTHYROXINE 112 MCG TAB PO SCH (06:30)
[2017-01-12] MEDS: LEVOTHYROXINE 125 MCG TAB PO SCH (06:38)
[2017-01-12 07:32] LABS: Glucose,Whole Blood 219 mg/dL (75-99)
[2017-01-12] MEDS: INSULIN LISPRO (humaLOG) 300 UNIT/3 ML VIAL SQ SCH ×4 (07:53→17:10)
[2017-01-12] MEDS: TRIAMTERENE-HCTZ 37.5-25MG 1 EACH CAP PO SCH (07:54)
[2017-01-12] MEDS: ENOXAPARIN 40 MG/0.4 ML SYRINGE SQ SCH (07:54)
[2017-01-12] MEDS: MEMANTINE 5 MG TAB PO SCH ×2 (07:54→21:34)
[2017-01-12] MEDS: HYDROCHLOROTHIAZIDE 25 MG TAB PO SCH (07:54)
[2017-01-12 08:49] VITALS: BMI 25.4
[2017-01-12 10:42] LABS: ALT 29 U/L (9-52); AST 24 U/L (14-36); Alkaline Phosphatase 68 U/L (38-126); Anion Gap 8 mmol/L; Blood Urea Nitrogen 13 mg/dL (7-17); Calcium 8.9 mg/dL (8.4-10.2); Carbon Dioxide 25 mmol/L (22-30); Chloride 103 mmol/L (98-107); Glucose 333 mg/dL (74-99); Non-African American GFR(MDRD) >60 (>60 ml/min/1.73 sqM); Potassium 4.5 mmol/L (3.5-5.1); Sodium 136 mmol/L (137-145)
[2017-01-12 10:56] LABS: Basophils % (A) 0 %; CH 35.4; CHCM 31.7; Eosinophils # (A) 0.1 k/uL (0-0.7); Eosinophils % (A) 1 %; HCT 41.6 % (34.0-46.0); HDW 1.99; HGB 13.7 gm/dL (11.4-16.0); Luc # (Auto) 0.07; Luc % (Auto) 1; Lymphocytes % (A) 11 %; MCH 37.1 pg (25.0-35.0); MCV 112.3 fL (80.0-100.0); Macrocytosis Marked; Mean Platelet Volume 9.6; Monocytes # (A) 0.4 k/uL (0-1.0); Monocytes % (A) 5 %; Neutrophils # (A) 7.5 k/uL (1.3-7.7); Neutrophils % (A) 83 %; RBC 3.71 m/uL (3.80-5.40); RDW 12.2 % (11.5-15.5); WBC 9.1 k/uL (3.8-10.6); WBC (Perox) 9.62
[2017-01-12] MEDS: SODIUM CHLORIDE 0.9% 1,000 ML IV SCH (11:29)
[2017-01-12 11:45] LABS: Manual Review Performed
[2017-01-12 12:26] LABS: Glucose,Whole Blood 401 mg/dL (75-99)
--- NOTE | 2017-01-12 15:07 | P.PN ---
Subjective 81-year-old female pleasant patient of Dr. Duque with history of diabetes type 2 labile type of insulin-dependent could not remain on oral agent followed by Dr. Rojas endocrinology outpatient also has memory impairment, hyperlipidemia, osteomyelitis, hypothyroidism admitted to the emergency room secondary to unresponsiveness, EMS has evaluated the patient, this happened between breakfast and lunch, blood sugar was 26 at the time. Patient was supposed to take 6 units of insulin rapid acting breakfast lunch and dinner including a sliding scale at bedtime, patient complies with blood sugar testing, and cannot remember what her sugar numbers are and no sugar logs are brought in for further review. Patient apparently has been having decreased appetite, and only had toast and coffee for breakfast when the sugar decline occurred. Patient was given IV glucagon via EMS, and patient woke up in the ambulance. She denies any focal neurologic deficits including musculoskeletal trauma after the event. Patient denies any abdominal pain nausea vomiting diarrhea, no dysuria hematuria 01/12: Patient's blood sugars have gradually climbed and then currently at 401. Patient's Lantus will be increased to her home dose of 16 units tonight and Humalog scheduled for units with each meal. Case management has discussed discharge planning with her daughter and they [facility] home care in place as well as a caregiver that has been calling and reminding patient to take her medicines. Patient will need increased care at home to manage her insulins. Objective - Vital Signs Vital signs: Vital Signs Temp 99.4 F 01/12/17 07:00 Pulse 78 01/12/17 07:00 Resp 16 01/12/17 07:00 BP 123/68 01/12/17 07:00 Pulse Ox 92 L 01/12/17 07:00 Intake & Output 01/11/17 01/12/17 01/12/17 18:59 06:59 18:59 Weight 58.967 kg 58.967 kg Other: # Voids 3 1 - Exam General appearance: average body habitus, cooperative, no acute distress - EENT Eyes: anicteric sclerae, EOMI, PERRLA, dentition normal, normal appearance ENT: hearing grossly normal, NA/AT, normal oropharynx - Neck Neck: no lymphadenopathy, normal ROM, no other, no rigidity, no stridor, no thyromegaly - Respiratory Respiratory: bilateral: CTA, negative: diminished, dullness, rales, rhonchi - Cardiovascular Rhythm: regular Abnormal Heart Sounds: systolic murmur, no diastolic murmur, no rub, no S3 Gallop, no S4 Gallop, no click, no other - Gastrointestinal General gastrointestinal: normal bowel sounds, soft - Integumentary Integumentary: normal, normal turgor - Musculoskeletal Musculoskeletal: gait normal, no generalized weakness, strength equal bilaterally, no right sided weakness, no left sided weakness - Psychiatric Psychiatric: A&O x's 3, appropriate affect, intact judgment & insight - Labs CBC & Chem 7: 01/12/17 10:00 01/12/17 10:00 Labs: Abnormal Lab Results - Last 24 Hours (Table) 01/11/17 01/11/17 01/11/17 Range/Units 13:20 13:20 13:20 RBC (3.80-5.40) m/uL MCV 111.7 H D (80.0-100.0) fL MCH 36.6 H (25.0-35.0) pg Sodium (137-145) mmol/L Glucose (74-99) mg/dL POC Glucose (mg/dL) (75-99) mg/dL Hemoglobin A1c (4.2-6.1) % Plasma Lactic Acid Ahnk (0.7-2.0) mmol/L AST 46 H (14-36) U/L Total Creatine Kinase 302 H (30-135) U/L CK-MB (CK-2) 4.3 H* (0.0-2.4) ng/mL Total Protein (6.3-8.2) g/dL Albumin (3.5-5.0) g/dL TSH 19.900 H (0.465-4.680) mIU/L Urine Glucose (UA) (Negative) 01/11/17 01/11/17 01/11/17 Range/Units 13:20 13:20 13:57 RBC (3.80-5.40) m/uL MCV (80.0-100.0) fL MCH (25.0-35.0) pg Sodium (137-145) mmol/L Glucose (74-99) mg/dL POC Glucose (mg/dL) (75-99) mg/dL Hemoglobin A1c 8.9 H (4.2-6.1) % Plasma Lactic Acid Hank 2.1 H* (0.7-2.0) mmol/L AST (14-36) U/L Total Creatine Kinase (30-135) U/L CK-MB (CK-2) (0.0-2.4) ng/mL Total Protein (6.3-8.2) g/dL Albumin (3.5-5.0) g/dL TSH (0.465-4.680) mIU/L Urine Glucose (UA) 3+ H (Negative) 01/11/17 01/11/17 01/11/17 Range/Units 14:42 15:28 15:49 RBC (3.80-5.40) m/uL MCV (80.0-100.0) fL MCH (25.0-35.0) pg Sodium (137-145) mmol/L Glucose (74-99) mg/dL POC Glucose (mg/dL) 65 L 45 L 165 H (75-99) mg/dL Hemoglobin A1c (4.2-6.1) % Plasma Lactic Acid Hank (0.7-2.0) mmol/L AST (14-36) U/L Total Creatine Kinase (30-135) U/L CK-MB (CK-2) (0.0-2.4) ng/mL Total Protein (6.3-8.2) g/dL Albumin (3.5-5.0) g/dL TSH (0.465-4.680) mIU/L Urine Glucose (UA) (Negative) 01/11/17 01/11/17 01/11/17 Range/Units 16:34 16:58 20:37 RBC (3.80-5.40) m/uL MCV (80.0-100.0) fL MCH (25.0-35.0) pg Sodium (137-145) mmol/L Glucose (74-99) mg/dL POC Glucose (mg/dL) 133 H 141 H 350 H (75-99) mg/dL Hemoglobin A1c (4.2-6.1) % Plasma Lactic Acid Hank (0.7-2.0) mmol/L AST (14-36) U/L Total Creatine Kinase (30-135) U/L CK-MB (CK-2) (0.0-2.4) ng/mL Total Protein (6.3-8.2) g/dL Albumin (3.5-5.0) g/dL TSH (0.465-4.680) mIU/L Urine Glucose (UA) (Negative) 01/12/17 01/12/17 01/12/17 Range/Units 02:08 07:06 10:00 RBC 3.71 L (3.80-5.40) m/uL MCV 112.3 H (80.0-100.0) fL MCH 37.1 H (25.0-35.0) pg Sodium (137-145) mmol/L Glucose (74-99) mg/dL POC Glucose (mg/dL) 311 H 219 H (75-99) mg/dL Hemoglobin A1c (4.2-6.1) % Plasma Lactic Acid Hank (0.7-2.0) mmol/L AST (14-36) U/L Total Creatine Kinase (30-135) U/L CK-MB (CK-2) (0.0-2.4) ng/mL Total Protein (6.3-8.2) g/dL Albumin (3.5-5.0) g/dL TSH (0.465-4.680) mIU/L Urine Glucose (UA) (Negative) 01/12/17 01/12/17 Range/Units 10:00 12:24 RBC (3.80-5.40) m/uL MCV (80.0-100.0) fL MCH (25.0-35.0) pg Sodium 136 L (137-145) mmol/L Glucose 333 H (74-99) mg/dL POC Glucose (mg/dL) 401 H (75-99) mg/dL Hemoglobin A1c (4.2-6.1) % Plasma Lactic Acid Hank (0.7-2.0) mmol/L AST (14-36) U/L Total Creatine Kinase (30-135) U/L CK-MB (CK-2) (0.0-2.4) ng/mL Total Protein 6.0 L (6.3-8.2) g/dL Albumin 3.3 L (3.5-5.0) g/dL TSH (0.465-4.680) mIU/L Urine Glucose (UA) (Negative) Microbiology - Last 24 Hours (Table) 01/11/17 13:57 Urine Culture - Preliminary Urine,Clean Catch Assessment and Plan Plan: 1. Hypoglycemia secondary to diminished carbohydrate intake. Patient will be resumed back on Lantus 16 units at bedtime and Humalog will be at 4 units versus 6 units 3 times daily with meals along with Humalog scale. 2. Diabetes mellitus type 1 with prior history off DKA insulin requiring 3 hyperlipidemia: On statin resume medication which is pravastatin. 4hypothyroidism: Patient is on levothyroxine continue medication. Adjusted to 125 g secondary to elevated TSH, previous 112 mcg 5 neurocognitive disease with memory loss, chronic patient has been on Aricept currently lives at home with the , functional ADLs are still acceptable, most likely would need supervision specially with meals of supervision and insulin adjustments 6 remote history GI bleed upper, no current activity 7. Hypertension on hydro-Diuril 25 mg daily and Dyazide daily. Patient is not on any eileen inhibitors prior to admission 7 GI prophylaxis: Patient will be on Protonix IV. 8 DVT prophylaxis: We'll continue patient on knee-high KHADIJAH hose along with Venodyne boots no anticoagulation to be use for now. CODE STATUS: Full code. Discharge plan: Return home with [facility] and homecare and private pay services Impression and plan of care have been directed as dictated by the signing physician. Alethea Rey nurse practitioner acting as scribe for signing physician.
[2017-01-12 17:13] LABS: Glucose,Whole Blood 58 mg/dL (75-99)
[2017-01-12 17:33] LABS: Glucose,Whole Blood 97 mg/dL (75-99)
[2017-01-12] MEDS ORDERED: INSULIN GLARGINE 100 UNIT/ML 10 ML VIAL SQ SCH (21:00)
[2017-01-12 21:10] LABS: Glucose,Whole Blood 299 mg/dL (75-99)
[2017-01-12] MEDS: PRAVASTATIN SODIUM 20 MG TAB PO SCH (21:34)
[2017-01-12] MEDS: DONEPEZIL 10 MG TAB PO SCH (21:34)
[2017-01-13 02:03] LABS: Glucose,Whole Blood 248 mg/dL (75-99)
[2017-01-13] MEDS: SODIUM CHLORIDE 0.9% 1,000 ML IV SCH ×2 (04:06→12:22)
[2017-01-13] MEDS: LEVOTHYROXINE 125 MCG TAB PO SCH (06:31)
[2017-01-13 07:25] LABS: Glucose,Whole Blood 268 mg/dL (75-99)
[2017-01-13] MEDS: INSULIN LISPRO (humaLOG) 300 UNIT/3 ML VIAL SQ SCH ×5 (08:09→17:54)
[2017-01-13] MEDS: HYDROCHLOROTHIAZIDE 25 MG TAB PO SCH (08:10)
[2017-01-13] MEDS: MEMANTINE 5 MG TAB PO SCH ×2 (08:10→22:02)
[2017-01-13] MEDS: TRIAMTERENE-HCTZ 37.5-25MG 1 EACH CAP PO SCH (08:10)
[2017-01-13] MEDS: ENOXAPARIN 40 MG/0.4 ML SYRINGE SQ SCH (08:10)
[2017-01-13 09:29] LABS: Basophils % (A) 0 %; CHCM 30.6; Eosinophils # (A) 0.1 k/uL (0-0.7); Eosinophils % (A) 3 %; HCT 43.8 % (34.0-46.0); HDW 1.98; HGB 13.6 gm/dL (11.4-16.0); Hypochromasia Slight; Luc # (Auto) 0.11; Luc % (Auto) 2; Lymphocytes # (A) 1.1 k/uL (1.0-4.8); Lymphocytes % (A) 24 %; MCH 35.7 pg (25.0-35.0); MCHC 31.2 g/dL (31.0-37.0); MCV 114.5 fL (80.0-100.0); Macrocytosis Marked; Mean Platelet Volume 8.8; Monocytes # (A) 0.4 k/uL (0-1.0); Monocytes % (A) 7 %; Neutrophils % (A) 64 %; RBC 3.82 m/uL (3.80-5.40); RDW 11.9 % (11.5-15.5); WBC 4.7 k/uL (3.8-10.6); WBC (Perox) 4.87
[2017-01-13 10:12] LABS: ALT 23 U/L (9-52); AST 22 U/L (14-36); Alkaline Phosphatase 64 U/L (38-126); Anion Gap 7 mmol/L; Blood Urea Nitrogen 11 mg/dL (7-17); Calcium 8.9 mg/dL (8.4-10.2); Carbon Dioxide 25 mmol/L (22-30); Chloride 105 mmol/L (98-107); Glucose 323 mg/dL (74-99); Non-African American GFR(MDRD) >60 (>60 ml/min/1.73 sqM); Potassium 4.5 mmol/L (3.5-5.1); Sodium 137 mmol/L (137-145); Total Protein 6.1 g/dL (6.3-8.2)
[2017-01-13 12:16] LABS: Glucose,Whole Blood 175 mg/dL (75-99)
--- NOTE | 2017-01-13 13:44 | CDI ---
In responding to this query, please exercise your independent professional judgment. The [facility] Coding Staff and Clinical Documentation Specialists appreciate your assistance in clarifying documentation, maintaining compliance with coding guidelines, accurately documenting patients condition and capturing severity of illness. The fact that a question is asked does not imply that any particular answer is desired or expected. Communication forms are a method of clarifying documentation and are not made part of the Legal Health Record. Thank you in advance for your clarification. Last Revision, February 2015 Ever Foster [address] [facility] [place] [address] Documentation Clarification Form Date: 01/13/2017 1:23:00 PM From: Yuliana Kraus RN, CDS Admit Date: 01/11/2017 3:39:00 PM Patient Name: Karen Plasencia Visit Number: [id number] Dr. Shahida Albert Conflicting documentation has been found in the medical record. Per H&P and progress note 01/12 "history of diabetes type 2 labile type" is documented under history of present illness section. 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 Diabetes Mellitus Type 1 Diabetes Mellitus Type 2 OTHER explanation of clinical findings Unable to determine (no explanation for clinical findings) Please document in your progress notes and discharge summary in order to capture severity of illness and risk of mortality. Include clinical findings that support your diagnosis. FYI: Press F11 to launch patient chart. Thank you. JOSE
[2017-01-13 17:05] LABS: Glucose,Whole Blood 155 mg/dL (75-99)
[2017-01-13 21:00] LABS: Glucose,Whole Blood 325 mg/dL (75-99)
[2017-01-13] MEDS: DONEPEZIL 10 MG TAB PO SCH (22:02)
[2017-01-13] MEDS: PRAVASTATIN SODIUM 20 MG TAB PO SCH (22:02)
[2017-01-13] MEDS: INSULIN GLARGINE 100 UNIT/ML 10 ML VIAL SQ SCH (22:03)
[2017-01-14 02:41] LABS: Glucose,Whole Blood 273 mg/dL (75-99)
[2017-01-14] MEDS: SODIUM CHLORIDE 0.9% 1,000 ML IV SCH ×2 (06:22→17:54)
[2017-01-14] MEDS: LEVOTHYROXINE 125 MCG TAB PO SCH (06:22)
[2017-01-14 06:59] LABS: Glucose,Whole Blood 264 mg/dL (75-99)
[2017-01-14] MEDS: MEMANTINE 5 MG TAB PO SCH (08:05)
[2017-01-14] MEDS: TRIAMTERENE-HCTZ 37.5-25MG 1 EACH CAP PO SCH (08:05)
[2017-01-14] MEDS: INSULIN GLARGINE 100 UNIT/ML 10 ML VIAL SQ SCH (08:05)
[2017-01-14] MEDS: HYDROCHLOROTHIAZIDE 25 MG TAB PO SCH (08:05)
[2017-01-14] MEDS: ENOXAPARIN 40 MG/0.4 ML SYRINGE SQ SCH (08:05)
[2017-01-14] MEDS: INSULIN LISPRO (humaLOG) 300 UNIT/3 ML VIAL SQ SCH ×3 (08:06→17:54)
[2017-01-14 08:07] VITALS: PULSE 61
--- NOTE | 2017-01-14 08:27 | P.PN ---
Subjective 81-year-old female pleasant patient of Dr. Duque with history of diabetes type 2 labile type of insulin-dependent could not remain on oral agent followed by Dr. Rojas endocrinology outpatient also has memory impairment, hyperlipidemia, osteomyelitis, hypothyroidism admitted to the emergency room secondary to unresponsiveness, EMS has evaluated the patient, this happened between breakfast and lunch, blood sugar was 26 at the time. Patient was supposed to take 6 units of insulin rapid acting breakfast lunch and dinner including a sliding scale at bedtime, patient complies with blood sugar testing, and cannot remember what her sugar numbers are and no sugar logs are brought in for further review. Patient apparently has been having decreased appetite, and only had toast and coffee for breakfast when the sugar decline occurred. Patient was given IV glucagon via EMS, and patient woke up in the ambulance. She denies any focal neurologic deficits including musculoskeletal trauma after the event. Patient denies any abdominal pain nausea vomiting diarrhea, no dysuria hematuria 01/12: Patient's blood sugars have gradually climbed and then currently at 401. Patient's Lantus will be increased to her home dose of 16 units tonight and Humalog scheduled for units with each meal. Case management has discussed discharge planning with her daughter and they [facility] home care in place as well as a caregiver that has been calling and reminding patient to take her medicines. Patient will need increased care at home to manage her insulins. 01/13: Patient had another drop in her BS at supper yesterday to 58. Prior that she was 401. She is now running in the 200s. Since to Lantus 8 units twice daily and Humalog scale starting at 250 or higher. Scheduled Humalog will be discontinued. Patient will be monitored overnight and plan for discharge home tomorrow. Long discussion with patient's caregiver and the patient requires more care at home. Case management has contacted the daughter and she is aware of patient's needs. Objective - Vital Signs Vital signs: Vital Signs Temp 97.6 F 01/13/17 07:00 Pulse 78 01/13/17 07:00 Resp 16 01/13/17 07:00 BP 154/79 01/13/17 07:00 Pulse Ox 96 01/13/17 07:00 Intake & Output 01/12/17 01/13/17 01/13/17 18:59 06:59 18:59 Intake Total 600 Balance 600 Weight 58.967 kg Intake: IV 600 Sodium Chloride 0.9% 1, 600 000 ml @ 75 mls/hr IV . [id number] [facility] Rx#:[id number] Other: # Voids 1 3 - Exam General appearance: average body habitus, cooperative, no acute distress - EENT Eyes: anicteric sclerae, EOMI, PERRLA, dentition normal, normal appearance ENT: hearing grossly normal, NA/AT, normal oropharynx - Neck Neck: no lymphadenopathy, normal ROM, no other, no rigidity, no stridor, no thyromegaly - Respiratory Respiratory: bilateral: CTA, negative: diminished, dullness, rales, rhonchi - Cardiovascular Rhythm: regular Abnormal Heart Sounds: systolic murmur, no diastolic murmur, no rub, no S3 Gallop, no S4 Gallop, no click, no other - Gastrointestinal General gastrointestinal: normal bowel sounds, soft - Integumentary Integumentary: normal, normal turgor - Musculoskeletal Musculoskeletal: gait normal, no generalized weakness, strength equal bilaterally, no right sided weakness, no left sided weakness - Psychiatric Psychiatric: A&O x's 3, appropriate affect, intact judgment & insight - Labs CBC & Chem 7: 01/13/17 08:42 01/13/17 08:42 Labs: Abnormal Lab Results - Last 24 Hours (Table) 01/12/17 01/12/17 01/12/17 Range/Units 10:00 10:00 12:24 RBC 3.71 L (3.80-5.40) m/uL MCV 112.3 H (80.0-100.0) fL MCH 37.1 H (25.0-35.0) pg Sodium 136 L (137-145) mmol/L Glucose 333 H (74-99) mg/dL POC Glucose (mg/dL) 401 H (75-99) mg/dL Total Protein 6.0 L (6.3-8.2) g/dL Albumin 3.3 L (3.5-5.0) g/dL 01/12/17 01/12/17 01/13/17 Range/Units 17:07 21:01 01:58 RBC (3.80-5.40) m/uL MCV (80.0-100.0) fL MCH (25.0-35.0) pg Sodium (137-145) mmol/L Glucose (74-99) mg/dL POC Glucose (mg/dL) 58 L 299 H 248 H (75-99) mg/dL Total Protein (6.3-8.2) g/dL Albumin (3.5-5.0) g/dL 01/13/17 01/13/17 Range/Units 07:23 08:42 RBC (3.80-5.40) m/uL MCV 114.5 H (80.0-100.0) fL MCH 35.7 H (25.0-35.0) pg Sodium (137-145) mmol/L Glucose (74-99) mg/dL POC Glucose (mg/dL) 268 H (75-99) mg/dL Total Protein (6.3-8.2) g/dL Albumin (3.5-5.0) g/dL Microbiology - Last 24 Hours (Table) 01/11/17 13:57 Urine Culture - Final Urine,Clean Catch Assessment and Plan Plan: 1. Hypoglycemia secondary to diminished carbohydrate intake. Lantus changed to 8 units twice daily and Humalog scale starting at 250. 2. Diabetes mellitus type 1 with prior history off DKA insulin requiring 3 hyperlipidemia: On statin resume medication which is pravastatin. 4hypothyroidism: Patient is on levothyroxine continue medication. Adjusted to 125 g secondary to elevated TSH, previous 112 mcg 5 neurocognitive disease with memory loss, chronic patient has been on Aricept currently lives at home with the , functional ADLs are still acceptable, most likely would need supervision specially with meals of supervision and insulin adjustments 6 remote history GI bleed upper, no current activity 7. Hypertension on hydro-Diuril 25 mg daily and Dyazide daily. Patient is not on any eileen inhibitors prior to admission 7 GI prophylaxis: Patient will be on Protonix IV. 8 DVT prophylaxis: We'll continue patient on knee-high KHADIJAH hose along with Venodyne boots no anticoagulation to be use for now. CODE STATUS: Full code. Discharge plan: Return home with [facility] and private pay services Impression and plan of care have been directed as dictated by the signing physician. Alethea Rey nurse practitioner acting as scribe for signing physician.
[2017-01-14 09:44] LABS: Basophils % (A) 1 %; CH 36.3; CHCM 32.3; Eosinophils # (A) 0.1 k/uL (0-0.7); Eosinophils % (A) 2 %; HCT 47.2 % (34.0-46.0); HDW 2.03; HGB 14.7 gm/dL (11.4-16.0); Luc # (Auto) 0.08; Luc % (Auto) 2; Lymphocytes # (A) 1.6 k/uL (1.0-4.8); Lymphocytes % (A) 35 %; MCH 35.2 pg (25.0-35.0); MCHC 31.1 g/dL (31.0-37.0); MCV 113.1 fL (80.0-100.0); Macrocytosis Marked; Mean Platelet Volume 9.8; Monocytes # (A) 0.4 k/uL (0-1.0); Monocytes % (A) 9 %; Neutrophils # (A) 2.4 k/uL (1.3-7.7); Neutrophils % (A) 51 %; RBC 4.18 m/uL (3.80-5.40); RDW 12.7 % (11.5-15.5); WBC 4.6 k/uL (3.8-10.6); WBC (Perox) 4.47
[2017-01-14 10:08] LABS: Manual Review Performed
[2017-01-14 11:55] LABS: Glucose,Whole Blood 242 mg/dL (75-99)
[2017-01-14 15:16] VITALS: BP 125/65; RESP 20; TEMP 97.2
--- NOTE | 2017-01-14 15:22 | P.DS ---
Providers Date of admission: 01/11/17 15:39 Expected date of discharge: 01/14/17 Attending physician: Avi Daniels [facility] Course: 81-year-old female pleasant patient of Dr. Duque with history of diabetes type 2 labile type of insulin-dependent could not remain on oral agent followed by Dr. Rojas endocrinology outpatient also has memory impairment, hyperlipidemia, osteomyelitis, hypothyroidism admitted to the emergency room secondary to unresponsiveness, EMS has evaluated the patient, this happened between breakfast and lunch, blood sugar was 26 at the time. Patient was supposed to take 6 units of insulin rapid acting breakfast lunch and dinner including a sliding scale at bedtime, patient complies with blood sugar testing, and cannot remember what her sugar numbers are and no sugar logs are brought in for further review. Patient apparently has been having decreased appetite, and only had toast and coffee for breakfast when the sugar decline occurred. Patient was given IV glucagon via EMS, and patient woke up in the ambulance. She denies any focal neurologic deficits including musculoskeletal trauma after the event. Patient denies any abdominal pain nausea vomiting diarrhea, no dysuria hematuria 01/12: Patient's blood sugars have gradually climbed and then currently at 401. Patient's Lantus will be increased to her home dose of 16 units tonight and Humalog scheduled for units with each meal. Case management has discussed discharge planning with her daughter and they [facility] home care in place as well as a caregiver that has been calling and reminding patient to take her medicines. Patient will need increased care at home to manage her insulins. 01/13: Patient had another drop in her BS at supper yesterday to 58. Prior that she was 401. She is now running in the 200s. Since to Lantus 8 units twice daily and Humalog scale starting at 250 or higher. Scheduled Humalog will be discontinued. Patient will be monitored overnight and plan for discharge home tomorrow. Long discussion with patient's caregiver and the patient requires more care at home. Case management has contacted the daughter and she is aware of patient's needs. 01/14: Blood sugars are improved without hypoglycemia but running in the 200s which are acceptable at this time. We will plan for the patient is going home on Lantus schedule twice daily at 10 units and our revised Humalog scale. Patient will be discharged home today in stable condition Discharge diagnoses: 1. Hypoglycemia secondary to diminished carbohydrate intake. 2. Diabetes mellitus type 1 with prior history of DKA insulin requiring 3 hyperlipidemia 4 hypothyroidism 5 neurocognitive disease with memory loss, chronic 6 remote history GI bleed upper, no current activity 7. Hypertension Discharge plan: Return home with [facility] and private pay services Impression and plan of care have been directed as dictated by the signing physician. Alethea Rey nurse practitioner acting as scribe for signing physician. Patient Condition at Discharge: Good Plan - Discharge Summary New Discharge Prescriptions: New INSULIN LISPRO (humaLOG) [humaLOG (formulary)] 0 unit SQ AC-TID vial Continue Pravastatin Sodium [Pravachol] 20 mg PO DAILY Donepezil [Aricept] 10 mg PO HS Glucagon Emergency Kit 1 mg IM ONCE PRN PRN Reason: Blood Sugar - Low Chlorothiazide [Diuril] 250 mg PO DAILY Triamterene-Hctz 37.5-25Mg [Dyazide 37.5-25 Capsule] 1 cap PO DAILY Oxybutynin Chloride [Ditropan] 5 mg PO DAILY Levothyroxine Sodium [Synthroid] 112 mcg PO DAILY Memantine HCl [Namenda Xr] 14 mg PO DAILY Changed Insulin Glargine,Hum.rec.anlog [Lantus Solostar] 10 unit SQ BID #0 Discontinued Insulin Lispro [humaLOG Kwikpen] 6 units SQ ACHS Discharge Medication List Donepezil [Aricept] 10 mg PO HS 12/05/14 [History] Pravastatin Sodium [Pravachol] 20 mg PO DAILY 12/05/14 [History] Chlorothiazide [Diuril] 250 mg PO DAILY 01/11/17 [History] Glucagon Emergency Kit 1 mg IM ONCE PRN 01/11/17 [History] Levothyroxine Sodium [Synthroid] 112 mcg PO DAILY 01/11/17 [History] Memantine HCl [Namenda Xr] 14 mg PO DAILY 01/11/17 [History] Oxybutynin Chloride [Ditropan] 5 mg PO DAILY 01/11/17 [History] Triamterene-Hctz 37.5-25Mg [Dyazide 37.5-25 Capsule] 1 cap PO DAILY 01/11/17 [ History] INSULIN LISPRO (humaLOG) [humaLOG (formulary)] 0 unit SQ AC-TID vial 01/14/17 [ Rx] Insulin Glargine,Hum.rec.anlog [Lantus Solostar] 10 unit SQ BID #0 01/14/17 [Rx ] Follow up Appointment(s)/Referral(s): [facility], [NON-STAFF] - Mat Duque MD [Primary Care Provider] - 01/21/17 9:00 am Patti Rojas MD [STAFF PHYSICIAN] - 01/20/17 3:00 pm Patient Instructions/Handouts: Hypoglycemia in a Person with Diabetes (DC) Activity/Diet/Wound Care/Special Instructions: Cardiac, diabetic diet. No alcohol usage, references given. Fall precautions. Discharge Disposition: HOME WITH HOME HEALTH SERVICES
--- NOTE | 2017-01-18 07:52 | CDI ---
In responding to this query, please exercise your independent professional judgment. The [facility] Coding Staff and Clinical Documentation Specialists appreciate your assistance in clarifying documentation, maintaining compliance with coding guidelines, accurately documenting patients condition and capturing severity of illness. The fact that a question is asked does not imply that any particular answer is desired or expected. Communication forms are a method of clarifying documentation and are not made part of the Legal Health Record. Thank you in advance for your clarification. Last Revision, February 2015 Ever Foster [address] [facility] [place] [address] Documentation Clarification Form Date: 01/18/2017 7:40:00 AM From: Christy Alfie Admit Date: 01/11/2017 3:39:00 PM Patient Name: Karen Plasencia Visit Number: [id number] Discharge Date: 01/14/17 Dr. Shahida Albert/Alethea Rey Per H&P and DS patient has neurocognitive disease with memory loss. Please clarify if the neurocognitive disease is: Major or Mild Please document addendum in your discharge summary in order to capture severity of illness and risk of mortality. Include clinical findings that support your diagnosis. FYI: Press F11 to launch patient chart. If you have a question about this query, please contact Melvi Breen, Fur Cutting Machine Operator, Ever Foster at [phone] between 8am and 5pm. JOSE
--- NOTE | 2017-02-01 07:18 | CDI ---
In responding to this query, please exercise your independent professional judgment. The [facility] Coding Staff and Clinical Documentation Specialists appreciate your assistance in clarifying documentation, maintaining compliance with coding guidelines, accurately documenting patients condition and capturing severity of illness. The fact that a question is asked does not imply that any particular answer is desired or expected. Communication forms are a method of clarifying documentation and are not made part of the Legal Health Record. Thank you in advance for your clarification. Last Revision, February 2015 Ever Foster [address] [facility] [place] [address] Documentation Clarification Form Date: 01/18/2017 7:40:00 AM From: Christy Judge Admit Date: 01/11/2017 3:39:00 PM Patient Name: Karen Plasencia Visit Number: [id number] Discharge Date: 01/14/17 Dr. Shahida Albert Per H&P and DS patient has neurocognitive disease with memory loss. Please clarify if the neurocognitive disease is: Major or Mild Please document addendum in your discharge summary in order to capture severity of illness and risk of mortality. Include clinical findings that support your diagnosis. FYI: Press F11 to launch patient chart. If you have a question about this query, please contact Melvi Breen, Flavorings Compounder, Ever Foster at [phone] between 8am and 5pm. JOSE
== END 2017-01-14 18:15 | disposition home health service (06) | DRG 639 ==
LOC: EC 13:02 → 4MS4W 15:39
PROVIDERS: ADMIT Internal Medicine; ATTEND Internal Medicine
DX: E10.649 Type 1 diabetes mellitus with hypoglycemia without coma (principal); I10 Essential (primary) hypertension; E03.9 Hypothyroidism, unspecified; E78.5 Hyperlipidemia, unspecified; K57.90 Diverticulosis of intestine, part unspecified, without perforation or abscess without bleeding; M19.91 Primary osteoarthritis, unspecified site; G31.84 Mild cognitive impairment of uncertain or unknown etiology; Z79.4 Long term (current) use of insulin; Z79.899 Other long term (current) drug therapy; Z96.41 Presence of insulin pump (external) (internal); Z87.891 Personal history of nicotine dependence; Z98.41 Cataract extraction status, right eye; Z98.42 Cataract extraction status, left eye; Z97.4 Presence of external hearing-aid; Z91.81 History of falling; Z83.3 Family history of diabetes mellitus
CPT/HCPCS: 36415; 80053; 81003; 82550; 82553; 83036; 83605; 83735; 84100; 84443; 84484; 85025; 85610; 85730; 87086; 93005; 96361; 96374; 99285

== ENCOUNTER → 2017-05-05 | Outpatient (CLI) | payer MEDICARE ==
--- NOTE | 2017-05-05 11:46 | BD ---
EXAMINATION TYPE: MG DEXA axial skeleton. DATE OF EXAM: 05/05/2017 COMPARISON: NONE CLINICAL HISTORY: Osteoporosis screening . Postmenopausal female. Height: 5 FT 1 1/2 IN Weight: 121 FRAX RISK QUESTIONS: Alcohol (3 or more units per day): NO Family History (Parent hip fracture): NO Glucocorticoids (More than 3mos): NO (Ex: prednisone, prednisolone, methylprednisolone, dexamethasone, and hydrocortisone). History of Fracture in Adulthood: YES Secondary Osteoporosis: 1. Type 1 Diabetes: NO 2. Hyperthyroidism: NO 3. Menopause before 45: UNSURE 4. Malnutrition: NO 5. Chronic liver disease: NO Rheumatoid Arthritis: NO Current Tobacco Use: NO RISK FACTORS HISTORY OF: Active: YES Postmenopausal woman: UNSURE MEDICATIONS: Thyroid Medications: YES Which medication: SYNTHROID How Long: ? Additional Medications: SYNTHROID, PRAVASTATIN, OVACE PLUS, NAMENDA, LANTUS, HUMALOG, DIAZIDE, DONEPE ZIL, CHLOROTHIAZIDE Additional History: PT HAS DEMENTIA POOR HISTORIAN EXAM MEASUREMENTS: Bone mineral densitometry was performed using the [employer] System. Bone mineral density as measured about the Lumbar spine is: ----- L1-L4(G/cm2): 1.422 T Score Values are as follows: ----- L2: 2.1 ----- L3: 3.0 ----- L4: 2.4 ----- L1-L4: 2.0 Bone mineral density has: INCREASED 7.2 % since study of: 2001 Bone mineral density about the R hip (g/cm2): 0.944 Bone mineral density about the L hip (g/cm2): 0.907 T Score values are as follows: -----R Neck: -0.7 -----L Neck: -0.9 -----R Total: -0.5 -----L Total: -0.3 Bone mineral density has: DECREASED -11.1 % since study of: 2001 IMPRESSION: Normal (Values between +1 and -1 indicate normal bone mass). Consider repeating this study in 5 year s or sooner if there is some new clinical indication. NOTE: T-SCORE=SD OF THE YOUNG ADULT MEAN.
--- NOTE | 2017-05-07 06:56 | MM ---
Reason for exam: screening (asymptomatic). Last mammogram was performed 15 years and 4 months ago. History: Patient is postmenopausal and is nulliparous. Physical Findings: A clinical breast exam by your physician is recommended on an annual basis and results should be correlated with mammographic findings. MG Screening Mammo w CAD Bilateral CC and MLO view(s) were taken. The breast tissue is extremely dense which could obscure a lesion on mammography. Stable calcifications. There is no discrete abnormality. No significant changes when compared with prior studies. ASSESSMENT: Benign, BI-RAD 2 RECOMMENDATION: Routine screening mammogram of both breasts in 1 year.
== END | disposition home or self-care (01) ==
LOC: RADMAMWWP 09:43
PROVIDERS: ATTEND Internal Medicine Geriatric Medicine
DX: Z12.31 Encounter for screening mammogram for malignant neoplasm of breast (principal); M81.0 Age-related osteoporosis without current pathological fracture
CPT/HCPCS: 77067; 77080

== ENCOUNTER → 2017-08-06 | Outpatient (CLI) | payer MEDICARE ==
[2017-08-06 11:31] LABS: ALT 28 U/L (9-52); AST 25 U/L (14-36); Albumin 3.7 g/dL (3.5-5.0); Alkaline Phosphatase 67 U/L (38-126); Anion Gap 8 mmol/L; Blood Urea Nitrogen 12 mg/dL (7-17); Calcium 9.4 mg/dL (8.4-10.2); Carbon Dioxide 33 mmol/L (22-30); Chloride 102 mmol/L (98-107); Cholesterol 172 mg/dL (<200); HDL Cholesterol 75 mg/dL (40-60); LDL Cholesterol,Calculated 88 mg/dL (0-99); Potassium 4.1 mmol/L (3.5-5.1); Sodium 143 mmol/L (137-145); Total Bilirubin 0.5 mg/dL (0.2-1.3); Total Protein 6.4 g/dL (6.3-8.2); Triglycerides 47 mg/dL (<150)
[2017-08-06 11:52] LABS: Glucose 35 mg/dL (74-99)
[2017-08-06 17:19] LABS: Hemoglobin A1C 9.4 % (4.0-6.0)
== END | disposition home or self-care (01) ==
LOC: LABWHC1 10:29
PROVIDERS: ATTEND Internal Medicine Endocrinology, Diabetes & Metabolism
DX: E11.65 Type 2 diabetes mellitus with hyperglycemia (principal)
CPT/HCPCS: 36415; 80053; 80061; 83036

== ENCOUNTER 2017-08-23 10:07 | Emergency (ER) | payer MEDICARE ==
[2017-08-23 11:08] LABS: Basophils % (A) 1 %; Eosinophils # (A) 0.1 k/uL (0-0.7); Eosinophils % (A) 1 %; HCT 40.4 % (34.0-46.0); Lymphocytes # (A) 1.4 k/uL (1.0-4.8); Lymphocytes % (A) 23 %; MCH 32.6 pg (25.0-35.0); MCHC 32.2 g/dL (31.0-37.0); MCV 101.2 fL (80.0-100.0); Mean Platelet Volume 9.4; Monocytes # (A) 0.4 k/uL (0-1.0); Monocytes % (A) 6 %; Neutrophils # (A) 3.9 k/uL (1.3-7.7); Neutrophils % (A) 67 %; Platelet Count 271 k/uL (150-450); RBC 3.99 m/uL (3.80-5.40); RDW 11.7 % (11.5-15.5); WBC 5.9 k/uL (3.8-10.6)
--- NOTE | 2017-08-23 11:13 | XR ---
EXAMINATION TYPE: XR tibia fibula LT DATE OF EXAM: 08/23/2017 CLINICAL HISTORY: Lower anterior tibial soft tissue wound for 1 month. TECHNIQUE: Two views of the left leg are obtained. COMPARISON: None. FINDINGS: There is no acute fracture or dislocation seen in the left tibia or fibula. The left knee and ankle joints appear within normal limits. There are multiple phleboliths and extensive periphera l arterial calcifications within the left lower extremity, however no focal subcutaneous soft tissue swelling or subcutaneous emphysema are noted. No periosteal reaction or cortical erosion are seen of the osseous structures to indicate sequela of osteomyelitis. Bicompartmental joint space narrowing an d marginal osteophytes are seen of the knee in the medial and lateral compartments. There is generali zed osseous demineralization. IMPRESSION: 1. No subcutaneous emphysema or radiographic sequela of osteomyelitis throughout the left lower extre mity with attention to the area of subcutaneous wound. 2. No acute fracture or dislocation seen in the left tibia or fibula. 3. Extensive vascular calcifications suggesting peripheral arterial disease. 4. Generalized osseous demineralization and moderate bicompartmental left knee arthropathy.
[2017-08-23 11:22] LABS: ALT 22 U/L (9-52); AST 27 U/L (14-36); Albumin 3.9 g/dL (3.5-5.0); Alkaline Phosphatase 76 U/L (38-126); Anion Gap 11 mmol/L; Blood Urea Nitrogen 14 mg/dL (7-17); Calcium 9.3 mg/dL (8.4-10.2); Carbon Dioxide 30 mmol/L (22-30); Chloride 102 mmol/L (98-107); Glucose 164 mg/dL (74-99); Potassium 4.8 mmol/L (3.5-5.1); Sodium 143 mmol/L (137-145); Total Bilirubin 0.7 mg/dL (0.2-1.3); Total Protein 6.5 g/dL (6.3-8.2)
--- NOTE | 2017-08-23 11:53 | ED ---
Skin/Abscess/FB HPI - General Chief complaint: Skin/Abscess/Foreign Body Stated complaint: Wound on L leg Time Seen by Provider: 08/23/17 10:18 Source: patient, RN notes reviewed Mode of arrival: ambulatory Limitations: no limitations - History of Present Illness Initial comments: 82-year-old female presented emergency Department for wound to her left leg. This has been there for several weeks has been followed by PCP had Steri-Strips placed for recently had increased redness, increased pain. They are concerned about possible cellulitis or abscess formation. Reported no fever no chills. They stated the wound started initially as a slight laceration. - Related Data Home Medications Medication Instructions Recorded Confirmed Donepezil [Aricept] 10 mg PO DAILY 12/05/14 08/23/17 Pravastatin Sodium [Pravachol] 20 mg PO DAILY 12/05/14 08/23/17 Chlorothiazide [Diuril] 250 mg PO DAILY 01/11/17 08/23/17 Levothyroxine Sodium [Synthroid] 112 mcg PO DAILY 01/11/17 08/23/17 Memantine HCl [Namenda Xr] 14 mg PO DAILY 01/11/17 08/23/17 Oxybutynin Chloride [Ditropan] 5 mg PO DAILY 01/11/17 08/23/17 INSULIN LISPRO (humaLOG) [humaLOG] See Protocol SQ AC-TID 08/23/17 08/23/17 Insulin Glargine,Hum.rec.anlog 22 unit SQ HS 08/23/17 08/23/17 [Lantus Solostar] Sertraline [Zoloft] 50 mg PO DAILY 08/23/17 08/23/17 Super B-Complex 1 tab PO DAILY 08/23/17 08/23/17 Previous Rx's Medication Instructions Recorded Cephalexin [Keflex] 500 mg PO Q6HR #40 cap 08/23/17 Allergies Allergy/AdvReac Type Severity Reaction Status Date / Time No Known Allergies Allergy Verified 08/23/17 10:30 Review of Systems ROS Statement: Those systems with pertinent positive or pertinent negative responses have been documented in the HPI. ROS Other: All systems not noted in ROS Statement are negative. Past Medical History Past Medical History: Dementia, Diabetes Mellitus, Hyperlipidemia, Memory Impairment, Osteoarthritis (OA), Syncope, Thyroid Disorder Additional Past Medical History / Comment(s): HAS HEARING AIDES BUT WON'T WEAR THEM, HAS UPPER PARTIAL PLATE. History of Any Multi-Drug Resistant Organisms: None Reported Past Surgical History: Adenoidectomy, Tonsillectomy, Tubal Ligation Additional Past Surgical History / Comment(s): COLONOSCOPY, BILATERAL CATARACTS REMOVED; LIVER BIOP Past Anesthesia/Blood Transfusion Reactions: No Reported Reaction Past Psychological History: No Psychological Hx Reported Smoking Status: Former smoker Past Alcohol Use History: Rare Past Drug Use History: None Reported - Past Family History Father History Unknown: Yes Additional Family Medical History / Comment(s): WAS ALCOHILIC IN AND OUT OF PTS LIFE NOT MUCH KNOWN ABOUT HIM Mother Family Medical History: Diabetes Mellitus General Exam Limitations: no limitations General appearance: alert, in no apparent distress Neck exam: Present: normal inspection. Absent: tenderness, meningismus, lymphadenopathy Respiratory exam: Present: normal lung sounds bilaterally. Absent: respiratory distress, wheezes, rales, rhonchi, stridor Cardiovascular Exam: Present: regular rate, normal rhythm, normal heart sounds. Absent: systolic murmur, diastolic murmur, rubs, gallop, clicks Extremities exam: Present: other (Left lower leg there is wound covered with Steri-Strips, lower Steri-Strips removed there is some purulent drainage noted, wound culture was obtained there is mild surrounding erythema minimal tenderness pedal pulses are equal bilaterally) Skin exam: Present: warm, dry Course Vital Signs 08/23/17 10:08 Temperature 98.4 F Pulse Rate 72 Respiratory 16 Rate Blood Pressure 124/60 O2 Sat by Pulse 99 Oximetry Medical Decision Making - Medical Decision Making 82-year-old female presents from for wound on her left leg. Patient does have surrounding cellulitis there is no abscess formation or osteomyelitis. Patient was placed on Keflex at this time. Patient follow-up with PCP tomorrow at scheduled appointment return for any worsening symptoms. - Lab Data Result diagrams: 08/23/17 10:45 08/23/17 10:45 Lab Results 08/23/17 08/23/17 Range/Units 10:45 10:45 WBC 5.9 (3.8-10.6) k/uL RBC 3.99 (3.80-5.40) m/uL Hgb 13.0 (11.4-16.0) gm/dL Hct 40.4 (34.0-46.0) % MCV 101.2 H (80.0-100.0) fL MCH 32.6 (25.0-35.0) pg MCHC 32.2 (31.0-37.0) g/dL RDW 11.7 (11.5-15.5) % Plt Count 271 (150-450) k/uL Neutrophils % 67 % Lymphocytes % 23 % Monocytes % 6 % Eosinophils % 1 % Basophils % 1 % Neutrophils # 3.9 (1.3-7.7) k/uL Lymphocytes # 1.4 (1.0-4.8) k/uL Monocytes # 0.4 (0-1.0) k/uL Eosinophils # 0.1 (0-0.7) k/uL Basophils # 0.0 (0-0.2) k/uL Sodium 143 (137-145) mmol/L Potassium 4.8 (3.5-5.1) mmol/L Chloride 102 (98-107) mmol/L Carbon Dioxide 30 (22-30) mmol/L Anion Gap 11 mmol/L BUN 14 (7-17) mg/dL Creatinine 0.51 L (0.52-1.04) mg/dL Est GFR (CKD-EPI)AfAm >90 (>60 ml/min/1.73 sqM) Est GFR (CKD-EPI)NonAf 89 (>60 ml/min/1.73 sqM) Glucose 164 H (74-99) mg/dL Calcium 9.3 (8.4-10.2) mg/dL Total Bilirubin 0.7 (0.2-1.3) mg/dL AST 27 (14-36) U/L ALT 22 (9-52) U/L Alkaline Phosphatase 76 (38-126) U/L Total Protein 6.5 (6.3-8.2) g/dL Albumin 3.9 (3.5-5.0) g/dL Disposition Clinical Impression: Left leg cellulitis, Leg wound, left Disposition: HOME SELF-CARE Condition: Stable Instructions: Cellulitis (ED) Additional Instructions: Please return to the Emergency Department if symptoms worsen or any other concerns. Prescriptions: Cephalexin [Keflex] 500 mg PO Q6HR #40 cap Is patient prescribed a controlled substance at d/c from ED?: No Referrals: Mat Duque MD [Primary Care Provider] - 1-2 days Time of Disposition: 11:53
[2017-08-23 11:58] VITALS: BP 135/62; PULSE 65; RESP 18; TEMP 97.7
== END 2017-08-23 12:01 | disposition home or self-care (01) ==
LOC: EC 10:07
DX: L03.116 Cellulitis of left lower limb (principal); E78.5 Hyperlipidemia, unspecified; E11.9 Type 2 diabetes mellitus without complications; F03.90 Unspecified dementia, unspecified severity, without behavioral disturbance, psychotic disturbance, mood disturbance, and anxiety; E07.9 Disorder of thyroid, unspecified; Z87.891 Personal history of nicotine dependence; Z79.4 Long term (current) use of insulin; Z79.899 Other long term (current) drug therapy
CPT/HCPCS: 36415; 80053; 85025; 87040; 87070; 87205; 99283

== ENCOUNTER 2017-08-24 12:13 | Inpatient (IN) | payer MEDICARE ==
[2017-08-24] MEDS ORDERED: SODIUM CHLORIDE 0.9% 1,000 ML IV ONE (12:27)
[2017-08-24 12:53] LABS: Basophils % (A) 0 %; Eosinophils # (A) 0.1 k/uL (0-0.7); Eosinophils % (A) 2 %; HCT 39.4 % (34.0-46.0); HGB 13.3 gm/dL (11.4-16.0); Lymphocytes # (A) 1.5 k/uL (1.0-4.8); Lymphocytes % (A) 29 %; MCHC 33.7 g/dL (31.0-37.0); MCV 100.8 fL (80.0-100.0); Mean Platelet Volume 8.9; Monocytes # (A) 0.2 k/uL (0-1.0); Monocytes % (A) 5 %; Neutrophils % (A) 61 %; Platelet Count 294 k/uL (150-450); RBC 3.91 m/uL (3.80-5.40); RDW 11.7 % (11.5-15.5)
[2017-08-24 12:56] LABS: ALT 18 U/L (9-52); AST 29 U/L (14-36); Albumin 3.7 g/dL (3.5-5.0); Alkaline Phosphatase 70 U/L (38-126); Anion Gap 10 mmol/L; Blood Urea Nitrogen 19 mg/dL (7-17); Calcium 9.4 mg/dL (8.4-10.2); Carbon Dioxide 28 mmol/L (22-30); Chloride 103 mmol/L (98-107); Glucose 221 mg/dL (74-99); Potassium 4.1 mmol/L (3.5-5.1); Sodium 141 mmol/L (137-145); Total Bilirubin 0.5 mg/dL (0.2-1.3); Total Protein 6.2 g/dL (6.3-8.2)
[2017-08-24 13:01] LABS: Partial Thromboplastin Time 22.8 sec (22.0-30.0); Prothrombin Time 9.9 sec (9.0-12.0)
[2017-08-24 13:07] LABS: Appearance,Urine Clear (Clear); Bilirubin,Urine Negative (Negative); Blood,Urine Negative (Negative); Color,Urine Yellow; Glucose,Urine (UA) Negative (Negative); Ketones,Urine Negative (Negative); Leukocyte Esterase,Urine Negative (Negative); Nitrite,Urine Negative (Negative); Protein,Urine Negative (Negative); Specific Gravity,Urine 1.019 (1.001-1.035)
--- NOTE | 2017-08-24 13:12 | ED ---
Altered Mental Status HPI - General Chief Complaint: Altered Mental Status Stated Complaint: Fall Time Seen by Provider: 08/24/17 12:27 Source: patient, RN notes reviewed Mode of arrival: ambulatory Limitations: no limitations - History of Present Illness Initial Comments: 82-year-old female sent emergency from with caregivers for unsteady gait, change in behavior. Patient seen here yesterday for infection to her left leg. She has taken 2 doses of Keflex 80 state that the wound slightly improved today. Filled that she had 4 near fall today they states that she is unsteady more weak than usual. He also states she seemed more confused earlier but is at her normal baseline now. Patient herself has no specific complaints other than mild left leg pain. Patient lab work, x-ray performed yesterday. Reported no fever no chills denies any nausea vomiting diarrhea, constipation, chest pain, shortness breath, headache, blurred vision or any focal weakness. - Related Data Home Medications Medication Instructions Recorded Confirmed Donepezil [Aricept] 10 mg PO DAILY 12/05/14 08/24/17 Pravastatin Sodium [Pravachol] 20 mg PO DAILY 12/05/14 08/24/17 Chlorothiazide [Diuril] 250 mg PO DAILY 01/11/17 08/24/17 Levothyroxine Sodium [Synthroid] 112 mcg PO DAILY 01/11/17 08/24/17 Memantine HCl [Namenda Xr] 14 mg PO DAILY 01/11/17 08/24/17 Oxybutynin Chloride [Ditropan] 5 mg PO DAILY 01/11/17 08/24/17 INSULIN LISPRO (humaLOG) [humaLOG] See Protocol SQ AC-TID 08/23/17 08/24/17 Insulin Glargine,Hum.rec.anlog 22 unit SQ HS 08/23/17 08/24/17 [Lantus Solostar] Sertraline [Zoloft] 50 mg PO DAILY 08/23/17 08/24/17 Super B-Complex 1 tab PO DAILY 08/23/17 08/24/17 Previous Rx's Medication Instructions Recorded Cephalexin [Keflex] 500 mg PO Q6HR #40 cap 08/23/17 Allergies Allergy/AdvReac Type Severity Reaction Status Date / Time No Known Allergies Allergy Verified 08/24/17 12:31 Review of Systems ROS Statement: Those systems with pertinent positive or pertinent negative responses have been documented in the HPI. ROS Other: All systems not noted in ROS Statement are negative. Past Medical History Past Medical History: Dementia, Diabetes Mellitus, Hyperlipidemia, Memory Impairment, Osteoarthritis (OA), Syncope, Thyroid Disorder Additional Past Medical History / Comment(s): HAS HEARING AIDES BUT WON'T WEAR THEM, HAS UPPER PARTIAL PLATE. History of Any Multi-Drug Resistant Organisms: None Reported Past Surgical History: Adenoidectomy, Tonsillectomy, Tubal Ligation Additional Past Surgical History / Comment(s): COLONOSCOPY, BILATERAL CATARACTS REMOVED; LIVER BIOP Past Anesthesia/Blood Transfusion Reactions: No Reported Reaction Past Psychological History: No Psychological Hx Reported Smoking Status: Former smoker Past Alcohol Use History: Rare Past Drug Use History: None Reported - Past Family History Father History Unknown: Yes Additional Family Medical History / Comment(s): WAS ALCOHILIC IN AND OUT OF PTS LIFE NOT MUCH KNOWN ABOUT HIM Mother Family Medical History: Diabetes Mellitus General Exam Limitations: no limitations General appearance: alert, in no apparent distress Head exam: Present: atraumatic, normocephalic, normal inspection Eye exam: Present: normal appearance, PERRL, EOMI. Absent: scleral icterus, conjunctival injection, periorbital swelling ENT exam: Present: normal exam, normal oropharynx, mucous membranes moist Neck exam: Present: normal inspection, full ROM. Absent: tenderness, meningismus, lymphadenopathy Respiratory exam: Present: normal lung sounds bilaterally. Absent: respiratory distress, wheezes, rales, rhonchi, stridor Cardiovascular Exam: Present: regular rate, normal rhythm, normal heart sounds. Absent: systolic murmur, diastolic murmur, rubs, gallop, clicks GI/Abdominal exam: Present: soft, normal bowel sounds. Absent: distended, tenderness, guarding, rebound, rigid Back exam: Present: other (Left lower leg there is a wound that is dry, mild erythema, mild tenderness) Neurological exam: Present: alert, CN II-XII intact, reflexes normal. Absent: oriented X3, motor sensory deficit Skin exam: Present: warm, dry, intact, normal color. Absent: rash Course Vital Signs 08/24/17 08/24/17 12:21 13:40 Temperature 98.9 F 97.2 F L Pulse Rate 79 64 Respiratory 18 18 Rate Blood Pressure 110/58 148/70 O2 Sat by Pulse 95 100 Oximetry Medical Decision Making - Medical Decision Making 82-year-old female presents for altered mental status, increased weakness. Patient's found to have what sounds pneumonia. Patient be admitted for IV antibiotics, hydration and further evaluation. - Lab Data Result diagrams: 08/24/17 12:42 08/24/17 12:42 Lab Results 08/24/17 08/24/17 08/24/17 Range/Units 12:42 12:42 12:42 WBC 5.0 (3.8-10.6) k/uL RBC 3.91 (3.80-5.40) m/uL Hgb 13.3 (11.4-16.0) gm/dL Hct 39.4 (34.0-46.0) % MCV 100.8 H (80.0-100.0) fL MCH 34.0 (25.0-35.0) pg MCHC 33.7 (31.0-37.0) g/dL RDW 11.7 (11.5-15.5) % Plt Count 294 (150-450) k/uL Neutrophils % 61 % Lymphocytes % 29 % Monocytes % 5 % Eosinophils % 2 % Basophils % 0 % Neutrophils # 3.0 (1.3-7.7) k/uL Lymphocytes # 1.5 (1.0-4.8) k/uL Monocytes # 0.2 (0-1.0) k/uL Eosinophils # 0.1 (0-0.7) k/uL Basophils # 0.0 (0-0.2) k/uL PT (9.0-12.0) sec INR (<1.2) APTT (22.0-30.0) sec Sodium 141 (137-145) mmol/L Potassium 4.1 (3.5-5.1) mmol/L Chloride 103 (98-107) mmol/L Carbon Dioxide 28 (22-30) mmol/L Anion Gap 10 mmol/L BUN 19 H (7-17) mg/dL Creatinine 0.62 (0.52-1.04) mg/dL Est GFR (CKD-EPI)AfAm >90 (>60 ml/min/1.73 sqM) Est GFR (CKD-EPI)NonAf 83 (>60 ml/min/1.73 sqM) Glucose 221 H (74-99) mg/dL Calcium 9.4 (8.4-10.2) mg/dL Total Bilirubin 0.5 (0.2-1.3) mg/dL AST 29 (14-36) U/L ALT 18 (9-52) U/L Alkaline Phosphatase 70 (38-126) U/L Total Creatine Kinase 76 (30-135) U/L CK-MB (CK-2) 2.5 H* (0.0-2.4) ng/mL CK-MB (CK-2) Rel Index 3.3 Troponin I <0.012 (0.000-0.034) ng/mL Total Protein 6.2 L (6.3-8.2) g/dL Albumin 3.7 (3.5-5.0) g/dL Urine Color Urine Appearance (Clear) Urine pH (5.0-8.0) Ur Specific [place] (1.001-1.035) Urine Protein (Negative) Urine Glucose (UA) (Negative) Urine Ketones (Negative) Urine Blood (Negative) Urine Nitrite (Negative) Urine Bilirubin (Negative) Urine Urobilinogen (<2.0) mg/dL Ur Leukocyte Esterase (Negative) 08/24/17 08/24/17 Range/Units 12:42 13:01 WBC (3.8-10.6) k/uL RBC (3.80-5.40) m/uL Hgb (11.4-16.0) gm/dL Hct (34.0-46.0) % MCV (80.0-100.0) fL MCH (25.0-35.0) pg MCHC (31.0-37.0) g/dL RDW (11.5-15.5) % Plt Count (150-450) k/uL Neutrophils % % Lymphocytes % % Monocytes % % Eosinophils % % Basophils % % Neutrophils # (1.3-7.7) k/uL Lymphocytes # (1.0-4.8) k/uL Monocytes # (0-1.0) k/uL Eosinophils # (0-0.7) k/uL Basophils # (0-0.2) k/uL PT 9.9 (9.0-12.0) sec INR 1.0 (<1.2) APTT 22.8 (22.0-30.0) sec Sodium (137-145) mmol/L Potassium (3.5-5.1) mmol/L Chloride (98-107) mmol/L Carbon Dioxide (22-30) mmol/L Anion Gap mmol/L BUN (7-17) mg/dL Creatinine (0.52-1.04) mg/dL Est GFR (CKD-EPI)AfAm (>60 ml/min/1.73 sqM) Est GFR (CKD-EPI)NonAf (>60 ml/min/1.73 sqM) Glucose (74-99) mg/dL Calcium (8.4-10.2) mg/dL Total Bilirubin (0.2-1.3) mg/dL AST (14-36) U/L ALT (9-52) U/L Alkaline Phosphatase (38-126) U/L Total Creatine Kinase (30-135) U/L CK-MB (CK-2) (0.0-2.4) ng/mL CK-MB (CK-2) Rel Index Troponin I (0.000-0.034) ng/mL Total Protein (6.3-8.2) g/dL Albumin (3.5-5.0) g/dL Urine Color Yellow Urine Appearance Clear (Clear) Urine pH 7.0 (5.0-8.0) Ur Specific [place] 1.019 (1.001-1.035) Urine Protein Negative (Negative) Urine Glucose (UA) Negative (Negative) Urine Ketones Negative (Negative) Urine Blood Negative (Negative) Urine Nitrite Negative (Negative) Urine Bilirubin Negative (Negative) Urine Urobilinogen 3.0 (<2.0) mg/dL Ur Leukocyte Esterase Negative (Negative) - EKG Data EKG Comments: EKG performed at 13:06 sinus rhythm with short NH, rate of 68 NH interval 90 QRS 80 QT/QTC 408/433 Disposition Clinical Impression: Altered mental status, Leg wound, left, Pneumonia, Frequent falls Disposition: ADMITTED IP TO THIS [facility] Condition: Stable Referrals: Mat Duque MD [Primary Care Provider] - 1-2 days
[2017-08-24 13:15] LABS: Creatine Kinase 76 U/L (30-135)
[2017-08-24 13:27] LABS: Troponin I <0.012 ng/mL (0.000-0.034)
[2017-08-24 13:29] LABS: Creatine Kinase MB 2.5 ng/mL (0.0-2.4)
--- NOTE | 2017-08-24 13:39 | CT ---
EXAMINATION TYPE: CT brain wo con DATE OF EXAM: 08/24/2017 COMPARISON: 07/09/2014 HISTORY: Altered mental status, Fall this AM CT DLP: 943.6 mGycm Automated exposure control for dose reduction was used. FINDINGS: There is a 3 mm low density anterior to the optic chiasm stable from the prior exam could represent a small dermoid. Mild generalized degenerative change seen. Stable appearing remote lacunar infarction involving the r ight basal ganglia. Nonspecific periventricular low-attenuation suggestive of remote microvascular is chemia. No acute hemorrhage or mass effect. IMPRESSION: DEGENERATIVE AND NONSPECIFIC WHITE MATTER CHANGES MOST TYPICAL REMOTE MICROVASCULAR ISCHEMIA. 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 IF THERE IS CONCERN FOR ACUTE ISCHEMIA MARIOLA ELATE WITH MRI CLINICALLY WARRANTED.
--- NOTE | 2017-08-24 13:45 | XR ---
EXAMINATION TYPE: XR chest 2V DATE OF EXAM: 08/24/2017 COMPARISON: December 05, 2014 HISTORY: Shortness of breath TECHNIQUE: Frontal and lateral views of the chest are obtained. FINDINGS: Scattered senescent parenchymal changes noted. Hyperinflation compatible with COPD. Increased density right medial lung base could reflect focal eventration. Developing infiltrate diffi cult to exclude. Correlate clinically. Heart size is stable. Mediastinal structures are stable and grossly unremarkable. No evidence for hilar prominence. Degenerative changes dorsal spine. IMPRESSION: 1. Increased density right medial lung base could reflect focal eventration. Developing infiltrate di fficult to exclude. Correlate clinically.
[2017-08-24] MEDS ORDERED: LEVOFLOXACIN 750MG-D5W PMX 750 MG in DEXTROSE/WATER 1 150ML.BAG IVPB STA (15:02)
[2017-08-24] MEDS ORDERED: cefTRIAXone IN SWFI 1,000 MG/10 ML SYRINGE IVP STA (15:04)
[2017-08-24] MEDS ORDERED: AZITHROMYCIN 500 MG in SODIUM CHLORIDE 0.9% 250 ML IVPB STA (15:04)
[2017-08-24] MEDS ORDERED: PNEUMONIA PROTOCOL UTILIZED 1 EACH MISC PO PRN (15:06)
[2017-08-24 17:03] LABS: Glucose,Whole Blood 224 mg/dL (75-99)
[2017-08-24] MEDS: INSULIN ASPART 100 UNIT/ML 1 ML 10 ML VIAL SQ SCH ×2 (17:51→20:45)
--- NOTE | 2017-08-24 18:03 | P.HPIM ---
History of Present Illness H&P Date: 08/24/17 Chief Complaint: Mental status change 82-year-old female pleasant patient of Dr. Duque with history of diabetes type 2 labile type of insulin-dependent could not remain on oral agent outpatient also has memory impairment, hyperlipidemia, osteomyelitis, hypothyroidism admitted to the emergency room secondary to mental status change. Patient currently lives at home, and was noted to be more confused compared to baseline. She was seen yesterday secondary to left leg pain, x-rays and laboratory done, denies any nausea vomiting diarrhea chest pain or shortness of breath. Patient denies any loss of consciousness,, E Patient denies any abdominal pain nausea vomiting diarrhea, no dysuria hematuria In the emergency room, chest x-ray she was noted to have infiltrates in the right medial lung base that could reflect focal eventration developing infiltrate difficult to exclude hyperinflation with COPD,, EKG shows normal sinus rhythm heart rate of 68, no acute Q-wave changes, no QT prolongation, urinalysis normal double basic count of 5, MCV 100, liver function tests normal creatinine 0.6 troponin I of 0.012 CT brain showed remote vascular ischemia, remote vascular basal ganglion lacunar infarct. Patient was admitted for mental status changes with pneumonic infiltrate right pneumonia patient started on IV Rocephin and Zithromax Review of Systems Constitutional: Reports as per HPI, Denies anorexia, Denies chills, Denies chronic headaches, Denies chronic pain, Denies daytime sleepiness, Denies fatigue, Denies fever, Denies lethargy, Denies malaise, Denies night sweats, Denies poor appetite, Denies sweats, Denies weakness, Denies weight gain, Denies weight loss Ears, nose, mouth and throat: Reports as per HPI, Denies ant. neck pain, Denies bleeding gums, Denies dental pain, Denies dysphagia, Denies epistaxis, Denies headache, Denies hoarseness, Denies mouth pain, Denies nasal congestion, Denies nasal discharge, Denies neck fullness/pressure, Denies neck lump, Denies nose pain, Denies odynophagia, Denies post-nasal drip, Denies sinus pain, Denies sinus pressure, Denies swelling in mouth, Denies swelling in throat, Denies sore throat, Denies vertigo, Denies voice changes Cardiovascular: Reports as per HPI, Denies chest pain, Denies claudication, Denies decreased exercise tolerance, Denies dyspnea on exertion, Denies edema, Denies high blood pressure, Denies irregular heart beat, Denies leg edema, Denies lightheadedness, Denies orthopnea, Denies palpitations, Denies paroxysmal nocturnal dyspnea, Denies phlebitis, Denies rapid heart beat, Denies shortness of breath, Denies syncope Respiratory: Reports as per HPI, Reports cough, Denies congestion, Denies cough with sputum, Denies dyspnea, Denies excessive sputum, Denies hemoptysis, Denies home oxygen, Denies pain, Denies pain on inspiration, Denies pleurisy, Denies respiratory infections, Denies sleep apnea, Denies snoring, Denies wheezing Gastrointestinal: Reports as per HPI, Denies abdominal pain, Denies belching, Denies bloating, Denies BRBPR, Denies change in bowel habits, Denies coffee ground emesis, Denies constipation, Denies diarrhea, Denies dyspepsia, Denies early satiety, Denies excessive gas, Denies heartburn, Denies hematemesis, Denies hematochezia, Denies indigestion, Denies jaundice, Denies lactose intolerance, Denies loss of appetite, Denies melena, Denies nausea, Denies vomiting Genitourinary: Reports as per HPI, Denies abnormal vaginal bleeding, Denies decreased libido, Denies difficulty conceiving, Denies difficulty voiding, Denies dysmenorrhea, Denies dyspareunia, Denies dysuria, Denies flank pain, Denies genital sores, Denies hematuria, Denies hot flashes, Denies incomplete emptying, Denies kidney stones, Denies menorrhagia, Denies mixed incontinence, Denies nocturia, Denies pelvic pain, Denies post void dribbling, Denies , Denies prolapse symptoms, Denies stress incontinence, Denies urge incontinence , Denies urgency, Denies urinary frequency, Denies vaginal discharge, Denies vaginal dryness, Denies vaginal itching, Denies vaginal odor Menstruation: Reports as per HPI, Reports postmenopausal Musculoskeletal: Reports as per HPI, Reports gait dysfunction Integumentary: Reports as per HPI, Reports wounds Neurological: Reports as per HPI, Reports balance difficulties, Reports gait dysfunction, Reports weakness Endocrine: Reports as per HPI, Denies cold intolerance, Denies deepening of the voice, Denies excessive sweating, Denies excessive thirst, Denies fatigue, Denies flushing, Denies heat intolerance, Denies high blood sugars, Denies increase in ring/shoe/hat size, Denies low blood sugars, Denies nocturia, Denies palpitations, Denies polydipsia, Denies polyphagia, Denies polyuria, Denies proptosis, Denies recent glucocorticoid use, Denies thyroid mass, Denies weight change Hematologic/Lymphatic: Reports as per HPI Allergic/Immunologic: Reports as per HPI, Denies allergic rhinitis, Denies anaphylaxis, Denies angioedema, Denies gluten intolerance, Denies persistent infections, Denies seasonal allergies, Denies urticaria, Denies wheezing Past Medical History Past Medical History: Dementia, Diabetes Mellitus, Hyperlipidemia, Memory Impairment, Osteoarthritis (OA), Syncope, Thyroid Disorder Additional Past Medical History / Comment(s): HAS HEARING AIDES BUT WON'T WEAR THEM, HAS UPPER PARTIAL PLATE.diverticulosis, infection lt lower leg History of Any Multi-Drug Resistant Organisms: None Reported Past Surgical History: Adenoidectomy, Tonsillectomy, Tubal Ligation Additional Past Surgical History / Comment(s): COLONOSCOPY, BILATERAL CATARACTS REMOVED; LIVERbx-neg Past Anesthesia/Blood Transfusion Reactions: No Reported Reaction Past Psychological History: No Psychological Hx Reported Smoking Status: Former smoker Past Alcohol Use History: Rare Additional Past Alcohol Use History / Comment(s): SMOKED X25 YEARS QUIT 1PP WEEK Past Drug Use History: None Reported - Past Family History Father History Unknown: Yes Additional Family Medical History / Comment(s): WAS ALCOHILIC IN AND OUT OF PTS LIFE NOT MUCH KNOWN ABOUT HIM Mother Family Medical History: Diabetes Mellitus Medications and Allergies Home Medications Medication Instructions Recorded Confirmed Type Donepezil [Aricept] 10 mg PO DAILY 12/05/14 08/24/17 History Pravastatin Sodium [Pravachol] 20 mg PO DAILY 12/05/14 08/24/17 History Chlorothiazide [Diuril] 250 mg PO DAILY 01/11/17 08/24/17 History Levothyroxine Sodium [Synthroid] 112 mcg PO DAILY 01/11/17 08/24/17 History Memantine HCl [Namenda Xr] 14 mg PO DAILY 01/11/17 08/24/17 History Oxybutynin Chloride [Ditropan] 5 mg PO DAILY 01/11/17 08/24/17 History Cephalexin [Keflex] 500 mg PO Q6HR #40 cap 08/23/17 08/24/17 Rx INSULIN LISPRO (humaLOG) [humaLOG] See Protocol SQ AC-TID 08/23/17 08/24/17 History Insulin Glargine,Hum.rec.anlog 22 unit SQ HS 08/23/17 08/24/17 History [Lantus Solostar] Sertraline [Zoloft] 50 mg PO DAILY 08/23/17 08/24/17 History Super B-Complex 1 tab PO DAILY 08/23/17 08/24/17 History Allergies Allergy/AdvReac Type Severity Reaction Status Date / Time No Known Allergies Allergy Verified 08/24/17 12:31 Physical Exam Vitals: Vital Signs Temp Pulse Resp BP Pulse Ox 08/24/17 15:40 98.2 F 73 20 162/70 95 08/24/17 13:40 97.2 F L 64 18 148/70 100 08/24/17 12:21 98.9 F 79 18 110/58 95 Intake and Output 08/24/17 08/24/17 08/24/17 06:59 14:59 22:59 Other: Voiding Method Toilet Diaper Weight 57.153 kg - Constitutional General appearance: cooperative, no acute distress - EENT Eyes: anicteric sclerae, EOMI, PERRLA, normal appearance ENT: NA/AT, normal oropharynx - Neck Neck: no lymphadenopathy, normal ROM, no other, no rigidity, no stridor, no thyromegaly - Respiratory Respiratory: bilateral: CTA, negative: diminished, dullness, rales, rhonchi, wheezing - Cardiovascular Rhythm: regular Heart sounds: normal: S1, S2 Abnormal Heart Sounds: no systolic murmur, no diastolic murmur, no rub, no S3 Gallop, no S4 Gallop, no click, no other - Gastrointestinal General gastrointestinal: normal bowel sounds, soft - Integumentary Integumentary: decreased turgor, normal - Musculoskeletal Musculoskeletal: gait normal, strength equal bilaterally - Psychiatric Psychiatric: A&O x's 3, appropriate affect Results CBC & Chem 7: 08/24/17 12:42 08/24/17 12:42 Labs: Abnormal Lab Results - Last 24 Hours (Table) 08/24/17 08/24/17 08/24/17 Range/Units 12:42 12:42 12:42 MCV 100.8 H (80.0-100.0) fL BUN 19 H (7-17) mg/dL Glucose 221 H (74-99) mg/dL POC Glucose (mg/dL) (75-99) mg/dL CK-MB (CK-2) 2.5 H* (0.0-2.4) ng/mL Total Protein 6.2 L (6.3-8.2) g/dL 08/24/17 Range/Units 17:00 MCV (80.0-100.0) fL BUN (7-17) mg/dL Glucose (74-99) mg/dL POC Glucose (mg/dL) 224 H (75-99) mg/dL CK-MB (CK-2) (0.0-2.4) ng/mL Total Protein (6.3-8.2) g/dL Laboratory Results WBC 5.0 k/uL (3.8-10.6) 08/24/17 12:42 RBC 3.91 m/uL (3.80-5.40) 08/24/17 12:42 Hgb 13.3 gm/dL (11.4-16.0) 08/24/17 12:42 Hct 39.4 % (34.0-46.0) 08/24/17 12:42 MCV 100.8 fL (80.0-100.0) H 08/24/17 12:42 MCH 34.0 pg (25.0-35.0) 08/24/17 12:42 MCHC 33.7 g/dL (31.0-37.0) 08/24/17 12:42 RDW 11.7 % (11.5-15.5) 08/24/17 12:42 Plt Count 294 k/uL (150-450) 08/24/17 12:42 Neutrophils % 61 % 08/24/17 12:42 Lymphocytes % 29 % 08/24/17 12:42 Monocytes % 5 % 08/24/17 12:42 Eosinophils % 2 % 08/24/17 12:42 Basophils % 0 % 08/24/17 12:42 Neutrophils # 3.0 k/uL (1.3-7.7) 08/24/17 12:42 Lymphocytes # 1.5 k/uL (1.0-4.8) 08/24/17 12:42 Monocytes # 0.2 k/uL (0-1.0) 08/24/17 12:42 Eosinophils # 0.1 k/uL (0-0.7) 08/24/17 12:42 Basophils # 0.0 k/uL (0-0.2) 08/24/17 12:42 PT 9.9 sec (9.0-12.0) 08/24/17 12:42 INR 1.0 (<1.2) 08/24/17 12:42 APTT 22.8 sec (22.0-30.0) 08/24/17 12:42 Sodium 141 mmol/L (137-145) 08/24/17 12:42 Potassium 4.1 mmol/L (3.5-5.1) 08/24/17 12:42 Chloride 103 mmol/L (98-107) 08/24/17 12:42 Carbon Dioxide 28 mmol/L (22-30) 08/24/17 12:42 Anion Gap 10 mmol/L 08/24/17 12:42 BUN 19 mg/dL (7-17) H 08/24/17 12:42 Creatinine 0.62 mg/dL (0.52-1.04) 08/24/17 12:42 Est GFR (CKD-EPI)AfAm >90 (>60 ml/min/1.73 sqM) 08/24/17 12:42 Est GFR (CKD-EPI)NonAf 83 (>60 ml/min/1.73 sqM) 08/24/17 12:42 Glucose 221 mg/dL (74-99) H 08/24/17 12:42 POC Glucose (mg/dL) 224 mg/dL (75-99) H 08/24/17 17:00 POC Glu Billet Inspector Rizwana Merino 08/24/17 17:00 Calcium 9.4 mg/dL (8.4-10.2) 08/24/17 12:42 Total Bilirubin 0.5 mg/dL (0.2-1.3) 08/24/17 12:42 AST 29 U/L (14-36) 08/24/17 12:42 ALT 18 U/L (9-52) 08/24/17 12:42 Alkaline Phosphatase 70 U/L (38-126) 08/24/17 12:42 Total Creatine Kinase 76 U/L (30-135) 08/24/17 12:42 CK-MB (CK-2) 2.5 ng/mL (0.0-2.4) H* 08/24/17 12:42 CK-MB (CK-2) Rel Index 3.3 08/24/17 12:42 Troponin I <0.012 ng/mL (0.000-0.034) 08/24/17 12:42 Total Protein 6.2 g/dL (6.3-8.2) L 08/24/17 12:42 Albumin 3.7 g/dL (3.5-5.0) 08/24/17 12:42 Urine Color Yellow 08/24/17 13:01 Urine Appearance Clear (Clear) 08/24/17 13:01 Urine pH 7.0 (5.0-8.0) 08/24/17 13:01 Ur Specific [place] 1.019 (1.001-1.035) 08/24/17 13:01 Urine Protein Negative (Negative) 08/24/17 13:01 Urine Glucose (UA) Negative (Negative) 08/24/17 13:01 Urine Ketones Negative (Negative) 08/24/17 13:01 Urine Blood Negative (Negative) 08/24/17 13:01 Urine Nitrite Negative (Negative) 08/24/17 13:01 Urine Bilirubin Negative (Negative) 08/24/17 13:01 Urine Urobilinogen 3.0 mg/dL (<2.0) 08/24/17 13:01 Ur Leukocyte Esterase Negative (Negative) 08/24/17 13:01 Thrombosis Risk Factor Assmnt - DVT/VTE Prophylaxis DVT/VTE Prophylaxis: Pharmacologic Prophylaxis ordered - Choose All That Apply Any of the Below Risk Factors Present?: No Other Risk Factors: Yes Each Risk Factor Represents 3 Points: Age 75 years or older Other congenital or acquired thrombophilia - If yes, enter type in comment: No Thrombosis Risk Factor Assessment Total Risk Factor Score: 3 Thrombosis Risk Factor Assessment Level: Moderate Risk Assessment and Plan Plan: 1. Metabolic encephalopathy with acute pneumonia right middle lobe, patient's given IV Rocephin and Zithromax, monitor for hypoglycemia related to sugar diabetes, B12 to be checked, physical therapy secondary to recurrent falls, with attempt to obtain sputum cultures, blood cultures, thyroid function test to be checked 2. Diabetes mellitus type 1 with prior history of DKA insulin requiring NovoLog pre-meal sliding scale, continue Lantus 22 units at bedtime 3 hyperlipidemia: On statin resume medication which is pravastatin 40 mg no change. 4hypothyroidism: Patient is on levothyroxine continue medication. Adjusted to 125 g secondary to elevated TSH, previous 112 mcg 5 neurocognitive disease with memory loss, chronic patient has been on Aricept currently lives at home with the , functional ADLs are still acceptable, 6 remote history GI bleed upper, no current activity 7. Hypertension on hydro-Diuril 25 mg daily and Dyazide daily. Patient is not on any eileen inhibitors prior to admission 7 GI prophylaxis: Patient will be on Pepcid 8 DVT prophylaxis: We'll continue patient on knee-high KHADIJAH hose along Lovenox 40 mg daily Recurrent falls, PT OT to be following the patient, might need skilled therapies at home or inpatient Enlarged RBC volume, macrocytosis, B12 to be obtained, RBC folate CODE STATUS: Full code. Expectation from this admission: Patient be in the hospital for more than 2 nights.
[2017-08-24] MEDS: ENOXAPARIN 40 MG/0.4 ML SYRINGE SQ SCH (18:52)
[2017-08-24 20:29] LABS: Glucose,Whole Blood 187 mg/dL (75-99)
[2017-08-24] MEDS: FAMOTIDINE 20 MG TAB PO SCH (20:45)
[2017-08-24] MEDS: INSULIN DETEMIR 100 UNIT/ML 10 ML VIAL SQ SCH (20:48)
[2017-08-25] MEDS ORDERED: DEXTROSE 50%-WATER 50 ML SYRINGE IVP ONE (06:01)
[2017-08-25 06:11] LABS: Glucose,Whole Blood 26 mg/dL (75-99)
[2017-08-25 06:18] LABS: Hemoglobin A1C 8.9 % (4.0-6.0)
[2017-08-25 06:21] LABS: Glucose,Whole Blood 111 mg/dL (75-99)
[2017-08-25] MEDS: cefTRIAXone IN SWFI 1,000 MG/10 ML SYRINGE IVP SCH ×2 (06:30→18:07)
[2017-08-25] MEDS: LEVOTHYROXINE 112 MCG TAB PO SCH (06:30)
[2017-08-25 07:23] LABS: Glucose,Whole Blood 145 mg/dL (75-99)
[2017-08-25] MEDS: INSULIN ASPART 100 UNIT/ML 1 ML 10 ML VIAL SQ SCH ×4 (08:10→21:32)
[2017-08-25] MEDS: MEMANTINE 5 MG TAB PO SCH ×2 (09:14→21:35)
[2017-08-25] MEDS: ENOXAPARIN 40 MG/0.4 ML SYRINGE SQ SCH (09:14)
[2017-08-25] MEDS: HYDROCHLOROTHIAZIDE 25 MG TAB PO SCH (09:14)
[2017-08-25] MEDS: FAMOTIDINE 20 MG TAB PO SCH ×2 (09:14→21:35)
[2017-08-25] MEDS: DONEPEZIL 10 MG TAB PO SCH (09:14)
[2017-08-25] MEDS: SERTRALINE 50 MG TAB PO SCH (09:14)
[2017-08-25] MEDS: OXYBUTYNIN CHLORIDE 5 MG TAB PO SCH (09:14)
[2017-08-25 09:35] LABS: Anion Gap 16 mmol/L; Blood Urea Nitrogen 15 mg/dL (7-17); Carbon Dioxide 27 mmol/L (22-30); Chloride 101 mmol/L (98-107); Glucose 224 mg/dL (74-99); Potassium 4.2 mmol/L (3.5-5.1); Sodium 144 mmol/L (137-145)
[2017-08-25 11:30] LABS: Macrocytosis Slight
[2017-08-25 11:32] LABS: Glucose,Whole Blood 344 mg/dL (75-99)
[2017-08-25 11:45] LABS: Basophils % (A) 0 %; Eosinophils # (A) 0.2 k/uL (0-0.7); Eosinophils % (A) 2 %; HCT 45.8 % (34.0-46.0); HGB 14.7 gm/dL (11.4-16.0); Lymphocytes # (A) 0.7 k/uL (1.0-4.8); Lymphocytes % (A) 7 %; MCH 33.1 pg (25.0-35.0); MCV 103.2 fL (80.0-100.0); Mean Platelet Volume 10.7; Monocytes # (A) 0.3 k/uL (0-1.0); Monocytes % (A) 4 %; Neutrophils % (A) 86 %; Platelet Count 222 k/uL (150-450); RBC 4.44 m/uL (3.80-5.40); RDW 11.8 % (11.5-15.5); WBC 9.3 k/uL (3.8-10.6)
--- NOTE | 2017-08-25 15:19 | P.PN ---
Subjective Progress Note Date: 08/25/17 82-year-old female pleasant patient of Dr. Duque with history of diabetes type 2 labile type of insulin-dependent could not remain on oral agent outpatient also has memory impairment, hyperlipidemia, osteomyelitis, hypothyroidism admitted to the emergency room secondary to mental status change. Patient currently lives at home, and was noted to be more confused compared to baseline. She was seen yesterday secondary to left leg pain, x-rays and laboratory done, denies any nausea vomiting diarrhea chest pain or shortness of breath. Patient denies any loss of consciousness,, E Patient denies any abdominal pain nausea vomiting diarrhea, no dysuria hematuria In the emergency room, chest x-ray she was noted to have infiltrates in the right medial lung base that could reflect focal eventration developing infiltrate difficult to exclude hyperinflation with COPD,, EKG shows normal sinus rhythm heart rate of 68, no acute Q-wave changes, no QT prolongation, urinalysis normal double basic count of 5, MCV 100, liver function tests normal creatinine 0.6 troponin I of 0.012 CT brain showed remote vascular ischemia, remote vascular basal ganglion lacunar infarct. Patient was admitted for mental status changes with pneumonic infiltrate right pneumonia patient started on IV Rocephin and Zithromax 08/25: Patient has no new complaints today and would like to go home. She is willing to stay for a high-resolution CT of the chest to be done and plan for discharge home tomorrow. White count is normal, electrolytes within normal limits. Objective - Vital Signs Vital signs: Vital Signs Temp 96.0 F L 08/25/17 07:00 Pulse 77 08/25/17 07:00 Resp 16 08/25/17 09:20 BP 147/71 08/25/17 07:00 Pulse Ox 95 08/25/17 07:00 Intake & Output 08/24/17 08/25/17 08/25/17 18:59 06:59 18:59 Intake Total 800 Balance 800 Weight 57.153 kg 57.153 kg Intake: Oral 800 Other: Voiding Method Toilet Toilet Diaper Diaper # Voids 3 # Bowel Movements 2 - Exam General appearance: cooperative, no acute distress - EENT Eyes: anicteric sclerae, EOMI, PERRLA, normal appearance ENT: NA/AT, normal oropharynx - Neck Neck: no lymphadenopathy, normal ROM, no other, no rigidity, no stridor, no thyromegaly - Respiratory Respiratory: bilateral: CTA, negative: diminished, dullness, rales, rhonchi, wheezing - Cardiovascular Rhythm: regular Heart sounds: normal: S1, S2 Abnormal Heart Sounds: no systolic murmur, no diastolic murmur, no rub, no S3 Gallop, no S4 Gallop, no click, no other - Gastrointestinal General gastrointestinal: normal bowel sounds, soft - Integumentary Integumentary: decreased turgor, normal - Musculoskeletal Musculoskeletal: gait normal, strength equal bilaterally - Psychiatric Psychiatric: A&O x's 3, appropriate affect - Labs CBC & Chem 7: 08/25/17 11:08 08/25/17 08:41 Labs: Abnormal Lab Results - Last 24 Hours (Table) 08/24/17 08/24/17 08/24/17 Range/Units 12:41 12:42 12:42 MCV 100.8 H (80.0-100.0) fL BUN (7-17) mg/dL Creatinine (0.52-1.04) mg/dL Glucose (74-99) mg/dL POC Glucose (mg/dL) (75-99) mg/dL Hemoglobin A1c 8.9 H (4.0-6.0) % CK-MB (CK-2) 2.5 H* (0.0-2.4) ng/mL Total Protein (6.3-8.2) g/dL 08/24/17 08/24/17 08/24/17 Range/Units 12:42 17:00 20:13 MCV (80.0-100.0) fL BUN 19 H (7-17) mg/dL Creatinine (0.52-1.04) mg/dL Glucose 221 H (74-99) mg/dL POC Glucose (mg/dL) 224 H 187 H (75-99) mg/dL Hemoglobin A1c (4.0-6.0) % CK-MB (CK-2) (0.0-2.4) ng/mL Total Protein 6.2 L (6.3-8.2) g/dL 08/25/17 08/25/17 08/25/17 Range/Units 06:00 06:17 07:21 MCV (80.0-100.0) fL BUN (7-17) mg/dL Creatinine (0.52-1.04) mg/dL Glucose (74-99) mg/dL POC Glucose (mg/dL) 26 L 111 H 145 H (75-99) mg/dL Hemoglobin A1c (4.0-6.0) % CK-MB (CK-2) (0.0-2.4) ng/mL Total Protein (6.3-8.2) g/dL 08/25/17 Range/Units 08:41 MCV (80.0-100.0) fL BUN (7-17) mg/dL Creatinine 0.49 L (0.52-1.04) mg/dL Glucose 224 H (74-99) mg/dL POC Glucose (mg/dL) (75-99) mg/dL Hemoglobin A1c (4.0-6.0) % CK-MB (CK-2) (0.0-2.4) ng/mL Total Protein (6.3-8.2) g/dL Assessment and Plan Plan: 1. Metabolic encephalopathy with acute pneumonia right middle lobe, patient's given IV Rocephin and Zithromax, monitor for hypoglycemia related to sugar diabetes, B12 to be checked, physical therapy secondary to recurrent falls, with attempt to obtain sputum cultures, blood cultures, thyroid function test to be checked. High-resolution CT of the chest ordered. 2. Diabetes mellitus type 1 with prior history of DKA insulin requiring NovoLog pre-meal sliding scale, continue Lantus 22 units at bedtime 3 hyperlipidemia: On statin resume medication which is pravastatin 40 mg no change. 4hypothyroidism: Patient is on levothyroxine continue medication. Adjusted to 125 g secondary to elevated TSH, previous 112 mcg 5 neurocognitive disease with memory loss, chronic patient has been on Aricept currently lives at home with the , functional ADLs are still acceptable, 6 remote history GI bleed upper, no current activity 7. Hypertension on hydro-Diuril 25 mg daily and Dyazide daily. Patient is not on any eileen inhibitors prior to admission 7 GI prophylaxis: Patient will be on Pepcid 8 DVT prophylaxis: We'll continue patient on knee-high KHADIJAH hose along Lovenox 40 mg daily Recurrent falls, PT OT to be following the patient, might need skilled therapies at home or inpatient Enlarged RBC volume, macrocytosis, B12 to be obtained, RBC folate CODE STATUS: Full code. Discharge plan: [facility] tomorrow Impression and plan of care have been directed as dictated by the signing physician. Alethea Rey nurse practitioner acting as scribe for signing physician.
[2017-08-25] MEDS ORDERED: AZITHROMYCIN 500 MG in SODIUM CHLORIDE 0.9% 250 ML IVPB SCH (16:00)
--- NOTE | 2017-08-25 16:20 | CT ---
EXAMINATION TYPE: CT chest wo con DATE OF EXAM: 08/25/2017 COMPARISON: Chest x-ray from yesterday and older studies HISTORY: Pneumonia CT DLP: 144 mGycm. Automated Exposure Control for Dose Reduction was Utilized. TECHNIQUE: CT scan of the thorax is performed without IV contrast. High resolution protocol with 1 m m sequences obtained at 10 mm gaps in supine and prone technique FINDINGS: LUNGS: Some reticular interstitial changes are present bilaterally most prominent in the lower lungs. There is additional linear scarring posteriorly in the bilateral bases, left greater than right and additional linear scarring in the lingula. No suspicious mass is present. Corresponding to chest x-ra y abnormality there is eventration of right hemidiaphragm or diaphragmatic hernia seen best image 49 series 7. MEDIASTINUM: Lack of IV contrast is noted to limit evaluation for mediastinal and especially hilar ad enopathy. There are no definitive greater than 1 cm hilar or mediastinal lymph nodes. No significan t pericardial effusion is seen. Cardiomegaly is redemonstrated. Coronary artery calcification is agai n seen. There is moderate calcified plaque of the visualized abdominal aorta. OTHER: There is multilevel spurring in the spine. IMPRESSION: Chronic parenchymal changes and cardiomegaly without acute pulmonary process.
--- NOTE | 2017-08-25 16:21 | XR ---
EXAMINATION TYPE: XR chest 2V DATE OF EXAM: 08/25/2017 COMPARISON: Chest x-ray from yesterday HISTORY: Weakness, possible pneumonia. TECHNIQUE: Frontal and lateral views of the chest are obtained. FINDINGS: There is chronic reticular interstitial changes without new suspicious focal air space [place], pleural effusion, or pneumothorax seen. The cardiac silhouette size is upper limits of normal with atherosclerotic change in aortic knob. The osseous structures are demineralized. IMPRESSION: Chronic interstitial changes without acute infiltrate.
[2017-08-25 16:55] LABS: Glucose,Whole Blood 179 mg/dL (75-99)
[2017-08-25] MEDS ORDERED: PRAVASTATIN SODIUM 20 MG TAB PO SCH (21:00)
[2017-08-25] MEDS: INSULIN DETEMIR 100 UNIT/ML 10 ML VIAL SQ SCH (21:32)
[2017-08-25 21:41] LABS: Glucose,Whole Blood 120 mg/dL (75-99)
[2017-08-26 01:35] LABS: Glucose,Whole Blood 61 mg/dL (75-99)
[2017-08-26 01:48] LABS: Glucose,Whole Blood 67 mg/dL (75-99)
[2017-08-26 02:06] LABS: Glucose,Whole Blood 115 mg/dL (75-99)
[2017-08-26 05:58] LABS: Glucose,Whole Blood 228 mg/dL (75-99)
[2017-08-26] MEDS: LEVOTHYROXINE 112 MCG TAB PO SCH (06:22)
[2017-08-26] MEDS: cefTRIAXone IN SWFI 1,000 MG/10 ML SYRINGE IVP SCH (06:23)
[2017-08-26 07:16] LABS: Glucose,Whole Blood 220 mg/dL (75-99)
[2017-08-26 08:45] LABS: Basophils % (A) 0 %; Eosinophils # (A) 0.1 k/uL (0-0.7); Eosinophils % (A) 2 %; HCT 40.6 % (34.0-46.0); HGB 13.4 gm/dL (11.4-16.0); Lymphocytes # (A) 1.9 k/uL (1.0-4.8); Lymphocytes % (A) 31 %; MCH 33.6 pg (25.0-35.0); MCV 101.7 fL (80.0-100.0); Mean Platelet Volume 10.5; Monocytes # (A) 0.3 k/uL (0-1.0); Monocytes % (A) 6 %; Neutrophils # (A) 3.7 k/uL (1.3-7.7); Neutrophils % (A) 61 %; Platelet Count 237 k/uL (150-450); RDW 11.9 % (11.5-15.5); WBC 6.1 k/uL (3.8-10.6)
[2017-08-26 09:07] LABS: Anion Gap 10 mmol/L; Blood Urea Nitrogen 9 mg/dL (7-17); Calcium 9.2 mg/dL (8.4-10.2); Carbon Dioxide 29 mmol/L (22-30); Chloride 102 mmol/L (98-107); Glucose 251 mg/dL (74-99); Potassium 4.4 mmol/L (3.5-5.1); Sodium 141 mmol/L (137-145)
[2017-08-26] MEDS: MEMANTINE 5 MG TAB PO SCH (10:04)
[2017-08-26] MEDS: FAMOTIDINE 20 MG TAB PO SCH (10:04)
[2017-08-26] MEDS: DONEPEZIL 10 MG TAB PO SCH (10:04)
[2017-08-26] MEDS: OXYBUTYNIN CHLORIDE 5 MG TAB PO SCH (10:04)
[2017-08-26] MEDS: SERTRALINE 50 MG TAB PO SCH (10:05)
[2017-08-26] MEDS: ENOXAPARIN 40 MG/0.4 ML SYRINGE SQ SCH (10:05)
[2017-08-26] MEDS: HYDROCHLOROTHIAZIDE 25 MG TAB PO SCH (10:05)
[2017-08-26] MEDS: INSULIN ASPART 100 UNIT/ML 1 ML 10 ML VIAL SQ SCH ×2 (10:05→13:41)
[2017-08-26 12:18] LABS: Glucose,Whole Blood 237 mg/dL (75-99)
--- NOTE | 2017-08-26 14:26 | P.DS ---
Providers Date of admission: 08/24/17 15:24 Expected date of discharge: 08/26/17 Attending physician: Shereen May Primary care physician: [facility] Course: 82-year-old female pleasant patient of Dr. Duque with history of diabetes type 2 labile type of insulin-dependent could not remain on oral agent outpatient also has memory impairment, hyperlipidemia, osteomyelitis, hypothyroidism admitted to the emergency room secondary to mental status change. Patient currently lives at home, and was noted to be more confused compared to baseline. She was seen yesterday secondary to left leg pain, x-rays and laboratory done, denies any nausea vomiting diarrhea chest pain or shortness of breath. Patient denies any loss of consciousness,, E Patient denies any abdominal pain nausea vomiting diarrhea, no dysuria hematuria In the emergency room, chest x-ray she was noted to have infiltrates in the right medial lung base that could reflect focal eventration developing infiltrate difficult to exclude hyperinflation with COPD,, EKG shows normal sinus rhythm heart rate of 68, no acute Q-wave changes, no QT prolongation, urinalysis normal double basic count of 5, MCV 100, liver function tests normal creatinine 0.6 troponin I of 0.012 CT brain showed remote vascular ischemia, remote vascular basal ganglion lacunar infarct. Patient was admitted for mental status changes with pneumonic infiltrate right pneumonia patient started on IV Rocephin and Zithromax 08/25: Patient has no new complaints today and would like to go home. She is willing to stay for a high-resolution CT of the chest to be done and plan for discharge home tomorrow. White count is normal, electrolytes within normal limits. 08/26: CT of the chest revealed chronic parenchymal changes and cardiomegaly without acute pulmonary process. All antibiotics stopped. Patient will be discharged to [facility] where her is residing. Discharge diagnoses: 1. Metabolic encephalopathy with acute pneumonia right middle lobe, 2. Diabetes mellitus type 1 with prior history of DKA insulin requiring 3. Hyperlipidemia 4. Hypothyroidism: 5. Neurocognitive disease with memory loss, chronic 6. Remote history GI bleed upper, no current activity 7. Hypertension 8. Recurrent falls. Discharge plan: [facility] Impression and plan of care have been directed as dictated by the signing physician. Alethea Rey nurse practitioner acting as scribe for signing physician. Patient Condition at Discharge: Good Plan - Discharge Summary Discharge Rx Participant: No New Discharge Prescriptions: Continue Pravastatin Sodium [Pravachol] 20 mg PO DAILY Donepezil [Aricept] 10 mg PO DAILY Chlorothiazide [Diuril] 250 mg PO DAILY Oxybutynin Chloride [Ditropan] 5 mg PO DAILY Levothyroxine Sodium [Synthroid] 112 mcg PO DAILY Memantine HCl [Namenda Xr] 14 mg PO DAILY Sertraline [Zoloft] 50 mg PO DAILY Insulin Glargine,Hum.rec.anlog [Lantus Solostar] 22 unit SQ HS INSULIN LISPRO (humaLOG) [humaLOG] See Protocol SQ AC-TID Super B-Complex 1 tab PO DAILY Discontinued Cephalexin [Keflex] 500 mg PO Q6HR #40 cap Discharge Medication List Donepezil [Aricept] 10 mg PO DAILY 12/05/14 [History] Pravastatin Sodium [Pravachol] 20 mg PO DAILY 12/05/14 [History] Chlorothiazide [Diuril] 250 mg PO DAILY 01/11/17 [History] Levothyroxine Sodium [Synthroid] 112 mcg PO DAILY 01/11/17 [History] Memantine HCl [Namenda Xr] 14 mg PO DAILY 01/11/17 [History] Oxybutynin Chloride [Ditropan] 5 mg PO DAILY 01/11/17 [History] INSULIN LISPRO (humaLOG) [humaLOG] See Protocol SQ AC-TID 08/23/17 [History] Insulin Glargine,Hum.rec.anlog [Lantus Solostar] 22 unit SQ HS 08/23/17 [History ] Sertraline [Zoloft] 50 mg PO DAILY 08/23/17 [History] Super B-Complex 1 tab PO DAILY 08/23/17 [History] Follow up Appointment(s)/Referral(s): Mat Duque MD [Primary Care Provider] - 1 Week Discharge Disposition: TRANSFER TO SNF/ECF
[2017-08-26 15:51] VITALS: BP 141/81; PULSE 71; RESP 16; TEMP 98.6
[2017-08-26] MEDS ORDERED: AZITHROMYCIN 500 MG TAB PO SCH (16:00)
[2017-08-26 17:00] LABS: Glucose,Whole Blood 311 mg/dL (75-99)
== END 2017-08-26 17:43 | DRG 193 ==
LOC: EC 12:13 → EEVIPCON 15:24 → 4MS4W 15:24
PROVIDERS: ADMIT Family Medicine; ATTEND Family Medicine
DX: J18.9 Pneumonia, unspecified organism (principal); G93.41 Metabolic encephalopathy; S81.802A Unspecified open wound, left lower leg, initial encounter; E11.9 Type 2 diabetes mellitus without complications; D75.89 Other specified diseases of blood and blood-forming organs; F03.90 Unspecified dementia, unspecified severity, without behavioral disturbance, psychotic disturbance, mood disturbance, and anxiety; I11.9 Hypertensive heart disease without heart failure; E03.9 Hypothyroidism, unspecified; E78.5 Hyperlipidemia, unspecified; R29.6 Repeated falls; M19.90 Unspecified osteoarthritis, unspecified site; Z79.4 Long term (current) use of insulin; Z79.899 Other long term (current) drug therapy; Z87.891 Personal history of nicotine dependence; Z98.51 Tubal ligation status; Z98.42 Cataract extraction status, left eye; Z98.41 Cataract extraction status, right eye; Z96.1 Presence of intraocular lens; Z83.3 Family history of diabetes mellitus
CPT/HCPCS: 36415; 70450; 71046; 71250; 80048; 80053; 81003; 82550; 82553; 82607; 82747; 83036; 84443; 84484; 85025; 85610; 85730; 87040; 87070; 87205; 93005; 96361; 96365; 96375; 99283; 99285